=== PATIENT | female | born 1970 | race Caucasian/White ===

== ENCOUNTER 2021-12-25 13:15 | Inpatient (IN) | payer MEDICARE, MEDICAID, SELFPAY ==
[2021-12-25] VITALS (14 sets, daily range): BP systolic 110–146; BP diastolic 55–85; PULSE 62–140; RESP 13–23; TEMP 36.6–36.8; O2SAT 94–98; BMI 43.9
--- NOTE | 2021-12-25 13:16 | XRR_ITS ---
PROCEDURE INFORMATION: Exam: XR Chest Exam date and time: 12/25/2021 1:32 PM Age: 51 years old Clinical indication: Pain; Angina pectoris; Prior surgery; Surgery type: Loop recorder; Additional info: Chest pain TECHNIQUE: Imaging protocol: Radiologic exam of the chest. Views: 1 view. COMPARISON: No relevant prior studies available. FINDINGS: Tubes, catheters and devices: Metallic electronic device overlies the left side of the heart. Lungs: Unremarkable. No consolidation. Pleural spaces: Unremarkable. No pleural effusion. No pneumothorax. Heart/Mediastinum: Cardiomegaly. Bones/joints: Unremarkable. XR/XR chest 1V portable [id number] IMPRESSION: No acute findings.
--- NOTE | 2021-12-25 13:16 | ECG_ITS ---
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 Measurements Intervals [place] Rate: 75 P: 62 CT: 151 QRS: 62 QRSD: 97 T: 53 QT: 405 QTc: 452 Interpretive Statements SINUS RHYTHM WITH OCCASIONAL VENTRICULAR PREMATURE COMPLEXES WITH OCCASIONAL SUPRAVENTRICULAR PREMATURE COMPLEXES MODERATE ST DEPRESSION [0.05+ mV ST DEPRESSION] No previous ECG available for comparison Electronically Signed On 12-25-2021 18:56:32 CDT by Troy Anderson M.D. [id number]
--- NOTE | 2021-12-25 13:31 | ED_ITS ---
HPI - General Adult General: Chief complaint: Chest Pain Stated complaint: CHEST PAIN Time Seen by Provider: 12/25/21 13:16 History of Present Illness: CC: Chest Pain HPI: This is a [51]yo patient hx of DM, HTN, smoking presenting to the ED complaining of acute sudden onset of pounding chest pain. This happened around 12:00 shortly after patient was standing outside on the porch. Patient says the symptoms lasted for 6 minutes. Patient is followed by a milk handler and has a loop recorder. Patient recorded her symptoms of palpitation lightheadedness and shortness of breath along with chest pain during this time.. No associated with shortness of breath, chest pain or dyspnea on exertion. Pain is not tearing in nature and does not radiate to the back. Pain not associated with vomiting or PO intake. Denies any recent sympathomimetic drug use. Patient denies any cough. Denies palpitations, dysphagia, diaphoresis, radiation of pain to bilateral arms, jaw. Denies F/N/V/D. Patient denies any recent immobility, surgery, unilateral leg swelling, or prior PE. Patient denies any orthopnea. Onset: 1 hr ago Duration: 6 minutes Location: home Severity: moderate Associated symptoms: Reports chest pain, dyspnea and palpitations; Deny nausea, rash or vomiting Review of Systems Const: Denies: fever(s) or chills Eyes: Denies: change in vision ENMT: Denies: mouth pain Card: Reports: chest pain and palpitations Resp: Reports: dyspnea; Denies: non-productive cough GI: Denies: abdominal pain, nausea, vomiting or diarrhea : Denies: dysuria Musc: Denies: extremity pain Skin/Breast: Denies: rash or new lesions Neuro: Denies: weakness in extremities Psych: Reports: other (Normal mood) Zeke/Lymph: Denies: easy bruising PFSH ED PFSH: Medical History (Updated 12/27/21 @ 13:31 by Yaya Stewart MD) Chronic pain disorder Diabetes type 2, controlled Dyslipidemia due to type 2 diabetes mellitus Fall Hypertension Morbid obesity with BMI of 40.0-44.9, adult Obstructive sleep apnea Restless leg syndrome Urinary incontinence Social History Smoking and tobacco status: current every day smoker Alcohol intake: never Substance/Drug Use: never Physical Exam Const: COMMON NORMALS: alert HENMT: COMMON NORMALS: atraumatic HEAD & SCALP: atraumatic MOUTH: moist mucous membranes not abnormal Eye: COMMON NORMALS: EOMs intact bilaterally and conjunctivae normal CONJUNCTIVA: Yes conjunctivae normal Neck/C-Spine: COMMON NORMALS: full ROM and supple Resp: COMMON NORMALS: normal respiratory effort and clear to auscultation bilaterally AUSCULTATION: clear to auscultation bilaterally Cardio: OTHER: 2+ radial pulses b/l +irregular irregular rhythm GI: COMMON NORMALS: Soft to palpation and non-tender PALPATION: Yes Soft to palpation OTHER: No focal TTP. NO guarding rebound, guarding, rigidity. No CVA tenderness to percussion. Neg Nelson/Neg McBurney's point tenderness, no suprabupic tenderness to palpation. Extremity: COMMON NORMALS: full ROM OTHER: +no shavonne signs b/l Neuro: SENSORIUM/ORIENTATION: Yes alert MOTOR EXAM: No Abnormal motor strength present and Other motor observations present (no focal motor deficits) Psych: COMMON NORMALS: speech normal SPEECH: Yes normal speech MOOD & AFFECT: Yes euthymic mood Course Vital Signs: Vital signs: Vital Signs Temperature 98.1 F 12/30/21 08:00 Pulse Rate 87 12/30/21 08:09 Respiratory Rate 16 12/30/21 08:09 Blood Pressure 121/76 12/30/21 08:00 Pulse Oximetry 99 12/30/21 08:09 Oxygen Delivery Me thod 12/30/21 08:09 Oxygen Flow Rate 1.5 12/27/21 20:09 Fraction of Inspir ed Oxygen 21 12/30/21 08:09 MDM - General Adult Medical Decision Making [51]yo patient w/ hx of DM, HTN, smoking presenting to the ED with evaluation of new onset of chest pain. HDS, pulse 2+ radially bilaterally, no signs of fluid overload, AAOx3, neuro exam intact. Patient received ASA en route. Patient is noted to be in atrial fibrillation on the monitor. Patient occasionally has PVCs. Workup: ECG x 2, CXR, CBC, BMP, Troponin x 2 Interventions: Findings: ECG: No overt evidence of STEMI, hyperacute T waves, localizable STD or T wave inversions. No evidence of Brugada?s sign, delta wave, epsilon wave, significantly prolonged QTc, or malignant arrhythmia. No Q waves. Other Labs unremarkable for emergent problems. CXR: Without PTX, PNA, or widened mediastinum [3:56pm] On reassessment, the patient is HDS, no complaints of persistent chest pain in the ED after evaluation. ECG is non-ischemic. Discussed, patient was noted to have 2 runs of narrow complex irregular tachycardia with associated light-headedness. I discussed case with Dr. Johnson who will follow this case. Disposition: admission Lab Data : 12/28/21 05:04 12/30/21 03:50 Radiology Impressions Chest X-Ray 12/25/21 13:16 IMPRESSION: No acute findings. Laboratory Results WBC 8.9 10^3/uL (4.0-10.0) 12/26/21 02:50 RBC 4.45 10^6/uL (4.1-5.3) 12/26/21 02:50 Hgb 12.9 g/dL (11.5-15.3) 12/26/21 02:50 Hct 40.7 % (37.0-47.0) 12/26/21 02:50 MCV 91.5 fl (81-99) 12/26/21 02:50 MCH 29.0 pg (28.0-34.0) 12/26/21 02:50 MCHC 31.7 g/dL (30.0-36.0) 12/26/21 02:50 RDW 16.1 % (12.1-15.1) H 12/26/21 02:50 Plt Count 194 10^3/cmm (130-400) 12/26/21 02:50 MPV 11.5 fL (7.4-10.4) H 12/26/21 02:50 Neut % (Auto) 44.7 % 12/26/21 02:50 Lymph % (Auto) 42.0 % 12/26/21 02:50 Sebastian % (Auto) 8.8 % 12/26/21 02:50 Eos % (Auto) 3.5 % 12/26/21 02:50 Baso % (Auto) 0.3 % 12/26/21 02:50 Neut # (Auto) 3.98 10^3/uL (1.8-7.7) 12/26/21 02:50 Lymph # (Auto) 3.7 10^3/uL (0.8-4.8) 12/26/21 02:50 Sebastian # (Auto) 0.8 10^3/uL (0.2-0.9) 12/26/21 02:50 Eos # (Auto) 0.3 10^3/uL (0.0-0.8) 12/26/21 02:50 Baso # (Auto) 0.0 10^3/uL (0.0-0.1) 12/26/21 02:50 Nucleated RBC % (auto) 0 % 12/26/21 02:50 Nucleated RBCs # 0.0 /100WBC 12/26/21 02:50 Sodium 141 mmol/L (136-145) 12/26/21 02:50 Potassium 3.4 mmol/L (3.5-5.1) L 12/26/21 02:50 Chloride 100 mmol/L (98-107) 12/26/21 02:50 Carbon Dioxide 28 mmol/L (22-29) 12/26/21 02:50 Anion Gap 16.4 (5-19) 12/26/21 02:50 BUN 16 mg/dL (6-20) 12/26/21 02:50 Creatinine 0.7 mg/dL (0.5-0.9) 12/26/21 02:50 GFR Calculation 87.5 mL/min (90-130) L 12/26/21 02:50 Glucose 154 mg/dL (65-115) H 12/26/21 02:50 POC Glucose 195 mg/dL (70-110) H 12/26/21 11:45 Estimat Average Glucose 252 12/26/21 02:50 Hemoglobin A1c 10.4 % (4.0-6.0) H 12/26/21 02:50 Calculated Osmolality 296 mOsm/kg (285-295) H 12/26/21 02:50 Calcium 9.5 mg/dL (8.5-10.5) 12/26/21 02:50 Phosphorus 4.9 mg/dL (2.5-4.5) H 12/26/21 02:50 Magnesium 1.9 mg/dL (1.7-2.3) 12/26/21 02:50 Iron 68 ug/dL (37-145) 12/25/21 15:15 TIBC 356 mcg/dl 12/25/21 15:15 % Saturation 19.1 % (20-50) L 12/25/21 15:15 Unsat Iron Binding 288 ug/dL (112-347) 12/25/21 15:15 Total Bilirubin 0.2 mg/dL (0.15-1.2) 12/26/21 02:50 AST 18 U/L (0-32) 12/26/21 02:50 ALT 15 U/L (0-33) 12/26/21 02:50 Alkaline Phosphatase 121 IU/L (35-105) H 12/26/21 02:50 Troponin T Baseline 9 ng/L (0-10) 12/25/21 13:25 Troponin T 120 Minute 9.21 ng/L (0-10) 12/25/21 15:15 Delta Troponin T 0.21 ABS# (0-10) 12/25/21 15:15 Troponin T Hi Sens 6Hr 11.31 ng/L (0-10) H 12/25/21 21:27 Troponin T Hi Sens 6Hr Delta 2.31 ng/L (0-12) 12/25/21 21:27 NT-Pro-B Natriuret Pep 76 pg/mL (0-125) 12/25/21 15:15 Total Protein 6.6 g/dL (6.6-8.7) 12/26/21 02:50 Albumin 3.5 g/dL (3.5-5.2) 12/26/21 02:50 Globulin 3.1 g/dL (1.3-4.6) 12/26/21 02:50 Triglycerides 221 mg/dL (0-150) H 12/26/21 02:50 Cholesterol 137 mg/dL (0-200) 12/26/21 02:50 LDL Cholesterol, Calc 65 mg/dL (50-129) 12/26/21 02:50 Total VLDL Cholesterol 44 mg/dL (0-30) H 12/26/21 02:50 HDL Cholesterol 28 mg/dL (60-100) L 12/26/21 02:50 Cholesterol/HDL Ratio 4.89 mg/dL (0.0-4.40) H 12/26/21 02:50 Vitamin B12 669 pg/mL (232-1245) 12/25/21 15:15 Folate > 20.0 ng/mL (4.8-37.3) 12/25/21 15:15 TSH 1.82 uIU/mL (0.27-4.20) 12/25/21 13:25 Free T4 1.05 ng/dL (0.82-1.77) 12/25/21 13:25 Urine Color Yellow (Yellow) 12/25/21 17:30 Urine Appearance Clear (CLEAR) 12/25/21 17:30 Urine pH 5 (5-7) 12/25/21 17:30 Ur Specific [place] 1.005 (1.005-1.030) 12/25/21 17:30 Urine Protein Neg (Negative) 12/25/21 17:30 Urine Glucose (UA) 4+ (Normal) H 12/25/21 17:30 Urine Ketones Negative (Negative) 12/25/21 17:30 Urine Blood Neg (Negative) 12/25/21 17:30 Urine Nitrate Negative (Negative) 12/25/21 17:30 Urine Bilirubin Neg (Negative) 12/25/21 17:30 Urine Urobilinogen Norm mg/dL (Negative) 12/25/21 17:30 Ur Leukocyte Esterase Negative (Negative) 12/25/21 17:30 Urine Opiates Screen Negative ng/mL (Negative) 12/25/21 17:30 Ur Barbiturates Screen Negative ng/mL (Negative) 12/25/21 17:30 Ur Phencyclidine Scrn Negative ng/mL (Negative) 12/25/21 17:30 Ur Amphetamines Screen Negative ng/mL (Negative) 12/25/21 17:30 U Benzodiazepines Scrn Negative ng/mL (Negative) 12/25/21 17:30 Urine Cocaine Screen Negative ng/mL (Negative) 12/25/21 17:30 U Marijuana (THC) Screen Negative ng/mL (Negative) 12/25/21 17:30 Imaging Data Other Imaging: Radiologist's impression: [address] [place] [address] XRay Report Signed Patient: Halina Escamilla Unit #: [id number] : 1970 Age/Sex: 51 / F ADM Date: 12/25/21 Loc: ER Room/Bed: Attending Dr: Ordering Provider/Ordering MD: Kesha Saenz MD Date of Service: 12/25/21 Procedure(s): XR chest 1V portable [id number] Accession Number(s): [id number] Report Number: [id number] PROCEDURE INFORMATION: Exam: XR Chest Exam date and time: 12/25/2021 1:32 PM Age: 51 years old Clinical indication: Pain; Angina pectoris; Prior surgery; Surgery type: Loop recorder; Additional info: Chest pain TECHNIQUE: Imaging protocol: Radiologic exam of the chest. Views: 1 view. COMPARISON: No relevant prior studies available. FINDINGS: Tubes, catheters and devices: Metallic electronic device overlies the left side of the heart. Lungs: Unremarkable. No consolidation. Pleural spaces: Unremarkable. No pleural effusion. No pneumothorax. Heart/Mediastinum: Cardiomegaly. Bones/joints: Unremarkable. XR/XR chest 1V portable [id number] IMPRESSION: No acute findings. ? Dictated By: Andrea Parks MD Signed By: Andrea Parks MD Signed Date/Time: 12/25/21 1525 DD/ 1332 Discharge Plan Discharge Patient Disposition: Home Clinical Impression: Chest pain, Dyspnea, Palpitations, Light headedness Condition: Stable Discharge Orders: Discharge Order (Routine); Ordered 12/30/21 Ordered By: Yaya Stewart Discharge Diet: Regular, Cardiac and Diabetic Discharge Activity: Resume usual activity and Increase activity as tolerated Coding Level of Care Code ED Parachute/Combatant Diver Officer for Chg Fwd Exam Comprehensive
[2021-12-25 13:49] LABS: Basophils % 0.5 %; Eosinophils # 0.2 10^3/uL (0.0-0.8); Eosinophils % 2.8 %; Hematocrit 43.1 % (37.0-47.0); Hemoglobin 14.1 g/dL (11.5-15.3); Lymphocytes # 3.1 10^3/uL (0.8-4.8); Lymphocytes % 35.6 %; Mean Corpuscular HGB Conc 32.7 g/dL (30.0-36.0); Mean Corpuscular Hemoglobin 29.4 pg (28.0-34.0); Mean Corpuscular Volume 89.8 fl (81-99); Monocytes # 0.6 10^3/uL (0.2-0.9); Monocytes % 6.8 %; Neutrophils # 4.69 10^3/uL (1.8-7.7); Neutrophils % 53.8 %; Nucleated Red Blood Cells % 0 %; Platelet Count 236 10^3/cmm (130-400); Red Cell Distribution Width 16.2 % (12.1-15.1); White Blood Count 8.7 10^3/uL (4.0-10.0)
[2021-12-25 14:13] LABS: Troponin(5th) Baseline 9 ng/L (0-10)
[2021-12-25 14:20] LABS: Blood Urea Nitrogen 14 mg/dL (6-20); Calcium 9.6 mg/dL (8.5-10.5); Carbon Dioxide 26 mmol/L (22-29); Chloride 97 mmol/L (98-107); Free T4 Free Thyroxine 1.05 ng/dL (0.82-1.77); Glomerular Filtration Rate 87.5 mL/min (90-130); Glucose 277 mg/dL (65-115); Magnesium 1.7 mg/dL (1.7-2.3); Osmolality Calculated 298 mOsm/kg (285-295); Sodium 139 mmol/L (136-145); Thyroid Stimulating Hormone 1.82 uIU/mL (0.27-4.20)
[2021-12-25 14:21] LABS: Anion Gap 19.9 (5-19); Potassium 3.9 mmol/L (3.5-5.1)
--- NOTE | 2021-12-25 15:13 | ECG_ITS ---
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 Measurements Intervals [place] Rate: 65 P: [place]: QRS: 67 QRSD: 98 T: 65 QT: 423 QTc: 441 Interpretive Statements Sinus rhythm with premature atrial complexes Compared to ECG 12/25/2021 13:29:11 Aberrant conduction of supraventricular beat(s) now present ST (T wave) deviation still present Electronically Signed On 12-25-2021 19:00:46 CDT by Troy Anderson M.D. [id number]
[2021-12-25 15:51] LABS: Troponin 5 2HR 9.21 ng/L (0-10)
[2021-12-25 16:55] LABS: Troponin 5 2HR Delta 0.21 ABS# (0-10)
--- NOTE | 2021-12-25 17:04 | P.HP_ITS ---
Providers/Chief Complaint Chief Complaint: CHEST PAIN History of Present Illness Halina Escamilla is a 51 year old female with past medical history of type 2 diabetes mellitus, hypertension, paroxysmal A. fib, loop recorder placed in September [address] Pulido at [place], [place], anxiety presented to the ER because of frequent episodes of palpitations since today morning. Patient states since placement of loop recorder she has had few episodes of palpitation but since today morning episodes have been more frequent and more persistent. Usually the episodes will last for a minute but today they have been lasting for over 10 minutes. During the episodes she complains of mild shortness of breath. Denies dizziness or chest pressure or loss of consciousness. She denies any changes in the medications but did say that she missed her sotalol today morning as she ran out of the medication. Review of Systems General: Reports: 10 or more systems reviewed and unremarkable except in HPI and below Const: Denies: fever(s), chills, body aches, change in appetite, change in weight, malaise, night sweats, diaphoresis, change in sleep pattern, daytime sleepiness or snoring Eyes: Denies: change in vision, blurry vision, photophobia, eye discomfort or eye discharge ENMT: Denies: throat pain, enlarged tonsils, hoarseness, mouth pain, oral sores, dry mouth, tinnitus, nasal congestion or post nasal drip Card: Denies: chest pain, palpitations, irregular heart rhythm, edema, swelling of feet/ankles, lightheadedness, syncope, pre-syncope, dyspnea on exertion, orthopnea, leg pain with exertion or acrocyanosis Resp: Denies: dyspnea, productive cough, non-productive cough, wheezing, stridor, pain on inspiration, change in phlegm color, hemoptysis or chest conge stion GI: Denies: abdominal pain, nausea, vomiting, hematemesis, coffee ground emesis, dysphagia, heartburn, diarrhea, constipation, bloating, GI cramping, change in bowel habits, pain on defecation, hematochezia or melena : Denies: flank pain, dysuria, urinary frequency, urinary urgency, urinary hesitancy, nocturia or hematuria Musc: Denies: neck pain, back pain, extremity pain, joint pain, joint swellin g, joint redness, joint stiffness or limited range of motion Neuro: Denies: headache(s), numbness in extremities, weakness in extremities, sensory changes, lack of coordination, difficulty walking, frequent falls, dizziness, vertigo, confusion, Slurred speech present, difficulty communicating thoughts or seizure-like activity Psych: Denies: anxiety, depression, mood swings, panic attacks, hopelessness or irritability Endo: Denies: polyuria, polydipsia, tired all the time, cold intolerance, excessive sweating, flushing or heat intolerance Zeke/Lymph: Denies: easy bruising or easy bleeding All/Imm: Denies: tongue swelling, facial swelling or acute wheezing Medications/Allergies Home Medications Medication Instructions Recorded Confirmed Last Taken Type aspirin 325 mg tablet 325 mg PO DAILY 12/07/21 12/25/21 12/25/21 History atorvastatin 40 mg tablet 40 mg PO DAILY 12/07/21 12/25/21 12/25/21 History baclofen 10 mg tablet 10 mg PO TID PRN muscle pain #30 12/07/21 12/25/21 Unknown Rx tabs dapagliflozin 10 mg tablet 10 mg PO DAILY 12/07/21 12/25/21 12/25/21 History (Farxiga) diltiazem HCl 180 mg 180 mg PO QPM 12/07/21 12/25/21 12/24/21 History tablet,extended release 24 hr finerenone 10 mg tablet (Kerendia) 10 mg PO DAILY 12/07/21 12/25/21 12/25/21 History furosemide 20 mg tablet 20 mg PO DAILY 12/07/21 12/25/21 12/25/21 History gabapentin 400 mg tablet 1,200 mg PO QPM 12/07/21 12/25/21 12/24/21 History gabapentin 800 mg tablet 800 mg PO QAM 12/07/21 12/25/21 12/25/21 History insulin glargine 100 unit/mL (3 72 unit SUBCUT QPM 12/07/21 12/25/21 12/24/21 History mL) subcutaneous pen (Lantus Solostar U-100 Insulin) lisinopril 20 1 tab PO DAILY 12/07/21 12/25/21 12/25/21 History mg-hydrochlorothiazide 25 mg tablet oxybutynin chloride 5 mg tablet 5 mg PO BID 12/07/21 12/25/21 12/25/21 History potassium chloride 10 mEq 10 meq PO DAILY 12/07/21 12/25/21 12/25/21 History tablet,extended release ropinirole 2 mg tablet 2 mg PO BEDTIME 12/07/21 12/25/21 12/24/21 History sertraline 100 mg tablet 100 mg PO DAILY 12/07/21 12/25/21 12/25/21 History sitagliptin 50 mg-metformin ER 1 tab PO BID 12/07/21 12/25/21 12/25/21 History 1,000 mg tablet,extended release 24h mp (Janumet XR) sotalol 160 mg tablet 160 mg PO BID 12/07/21 12/25/21 12/25/21 History thiamine HCl (vitamin B1) 500 mg 500 mg PO DAILY 12/07/21 12/25/21 12/24/21 History tablet vitamin B complex (B 1 tab PO DAILY 12/07/21 12/25/21 12/25/21 History Complex-Vitamin B12) fluticasone propionate 50 2 spray intranasal DAILY PRN Nasal 12/25/21 12/25/21 Unknown History mcg/actuation nasal Congestion spray,suspension Allergies Allergy/AdvReac Type Severity Reaction Status Date / Time clindamycin AdvReac Mild ADR-Diarrhe Verified 12/07/21 08:59 a cyclobenzaprine AdvReac Mild ADR-Confusi Verified 12/07/21 08:59 [From Flexeril] on PFSH Acute PFSH: Medical History (Updated 12/25/21 @ 17:07 by Yaya Stewart MD) Chronic pain disorder Diabetes type 2, controlled Dyslipidemia due to type 2 diabetes mellitus Fall Hypertension Morbid obesity with BMI of 40.0-44.9, adult Restless leg syndrome Urinary incontinence Social History Smoking and tobacco status: current every day smoker Alcohol intake: never Substance/Drug Use: never Vitals/I&O/Wt Last Vital Signs Temp 97.9 F 12/25/21 13:16 Pulse 128 H 12/25/21 16:30 Resp 20 H 12/25/21 16:30 BP 143/85 12/25/21 16:30 Pulse Ox 96 12/25/21 16:30 O2 Del Method 12/25/21 13:16 Weight last 48 hrs Weight 127.459 kg Physical Exam Narrative: EXAM NARRATIVE: General: No acute distress, anxious HEENT: PERRLA, pupils bilaterally equal and reactive Chest: Bilateral normal vesicular breath sounds, equal good air entry bilaterally CVS: S1-S2 regular with episodes of missed beats, no murmurs, no tachycardia, no gallops, no rubs Abdomen: Soft, nontender, no organomegaly, bowel sounds present, morbidly obese Neuro: No focal deficits, no facial deformity, AO x3, power 5/5 in all limbs Data : 12/25/21 13:25 12/25/21 13:25 A&P Assessment and plan (1) Paroxysmal A-fib: Check TSH, echocardiogram, urinalysis, urine drug screen. Restart home dose of sotalol. Monitor QTC. Continue with home dose of Cardizem. Cardiology has been consulted from the ER. Not on anticoagulation because of low Francisco Vas score. We will wait for echocardiogram before making any further recommendations. Continue with aspirin 325 mg daily for now. Telemetry. Will talk to patient's outpatient deputy county clerk and try to get loop recorder results. Status: Acute (2) Dyspnea: Check proBNP. Checks x-ray. IV Lasix 40 mg once. Status: Acute (3) Palpitations: Status: Acute (4) Diabetes type 2, controlled: Check A1c. Continue with home dose of Lantus 72 units nightly. Insulin sliding scale at moderate dose protocol before meals and at bedtime Status: Acute (5) Hypertension: Goal blood pressure less than 140/90 mmHg. Continue with home dose of Cardizem, sotalol, lisinopril and hydrochlorothiazide. Uptitrate accordingly. Status: Acute (6) Morbid obesity with BMI of 40.0-44.9, adult: Cannot rule out underlying sleep apnea. Will advise patient for sleep study as an outpatient with primary care provider once social discord is more stable. Status: Acute Plan Check folate, lipid panel, vitamin B12, iron panel, urinalysis, A1c. Full code. Lovenox for DVT prophylaxis Famotidine for PUD prophylaxis Cardiac carb consistent diet. Admit to CSU. Attestations Medical Necessity Statement*: Admission under observation for less than 2 midnights for paroxysmal atrial fibrillation Time Spent in Patient Care: Greater than 35 minutes Coding Level of Care Code Acute Feather Renovator for Chg Fwd Diagnoses Paroxysmal A-fib I48.0 Dyspnea R06.00 Palpitations R00.2 Diabetes type 2, controlled E11.9 Hypertension I10 Morbid obesity with BMI of 40.0-44.9, adult E66.01; Z68.41
[2021-12-25] MEDS: sotalol 80 mg Tablet 160 MG PO (17:14)
[2021-12-25] MEDS: FUROsemide 10 mg/mL SDV 4mL 40 MG IVP (17:14)
--- NOTE | 2021-12-25 17:16 | ECG_ITS ---
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 Measurements Intervals [place] Rate: 145 P: [place]: QRS: 44 QRSD: 112 T: 180 QT: 229 QTc: 356 Interpretive Statements ATRIAL FLUTTER/TACHYCARDIA WITH RAPID VENTRICULAR RESPONSE MODERATE INTRAVENTRICULAR CONDUCTION DELAY [110+ ms QRS DURATION] Compared to ECG 12/25/2021 15:13:36 Intraventricular conduction delay now present Atrial fibrillation no longer present Ventricular premature complex(es) no longer present Aberrant conduction of supraventricular beat(s) no longer present ST (T wave) deviation still present Electronically Signed On 12-25-2021 18:55:09 CDT by Troy Anderson M.D. [id number]
--- NOTE | 2021-12-25 17:37 | USCV_ITS ---
Halina Escamilla Age: 51 Gender: F : 1970 Exam Date: 12/25/2021 20:01 Ordering Phys: Yaya Stewart MD Technologist: VISHNU Exam Location: [facility] [place] Indication: paroxysmal afib. No history of cardiac intervention per patient. BP: 146 / 84 HR: 85 Rhythm: Sinus Technical Quality: Adequate with [employer] MEASUREMENTS (Male / Female) Normal Values 2D ECHO LV Diastolic Diameter PLAX 4.4 cm 4.2 - 5.9 / 3.9 - 5.3 cm LV Systolic Diameter PLAX 2.7 cm IVS Diastolic Thickness 1.4 cm 0.6 - 1.0 / 0.6 - 0.9 cm IVS Systolic Thickness 2.0 cm LVPW Diastolic Thickness 1.3 cm 0.6 - 1.0 / 0.6 - 0.9 cm LVPW Systolic Thickness 2.1 cm LVOT Diameter 1.9 cm LV Ejection Fraction 2D Teich 68.2 % LV Ejection Fraction MOD 2C 47.0 % LV Ejection Fraction 2C AL 46.7 % LA Diameter 4.1 cm LA Width 4.1 cm LA Height 5.8 cm RA Width 4.8 cm RA Height 5.4 cm Aorta at Sinotubular Diameter 2.6 cm IVC Diameter 1.4 cm M-MODE Aortic Annulus Diameter 2.9 cm LA Ao Ratio MM 1.5 MV E Point Septal Separation 0.3 cm DOPPLER AV Peak Velocity 159.0 cm/s LVOT Peak Velocity 96.0 cm/s AV Area Cont Eq vti 1.5 cm squared AV Area Cont Eq pk 1.8 cm squared MV Area PHT 2.3 cm squared Mitral E to A Ratio 1.1 MV E' Velocity 72.5 cm/s Mitral E to MV E' Ratio 12.9 Mitral E to LV E' Lateral Ratio 12.1 Mitral E to LV E' Septal Ratio 13.8 TR Peak Velocity 241.0 cm/s TR Peak Gradient 23.2 mmHg TV Peak E Velocity 44.0 cm/s Right Atrial Pressure 5.0 mmHg Pulmonary Artery Systolic Pressu 28.2 mmHg PV Peak Velocity 106.0 cm/s RV Acceleration Time 0.2 s RV Ejection Time 0.5 s RV AcT/ET 0.3 FINDINGS Left Ventricle Normal left ventricular size, systolic function and wall thickness, with no regional wall motion abnormalities. Left ventricular ejection fraction is estimated at 60-65 %. Normal diastolic function. Right Ventricle Normal right ventricular size and systolic function. Right ventricular systolic pressure 28.2 mmHg. Right Atrium Normal right atrial size. Left Atrium Normal left atrial size. Mitral Valve Structurally normal mitral valve. No mitral valve stenosis. No mitral valve regurgitation. Aortic Valve Structurally normal trileaflet aortic valve. No aortic valve stenosis. No aortic valve regurgitation. Tricuspid Valve Structurally normal tricuspid valve. No tricuspid valve stenosis. Trace tricuspid valve regurgitation. Pulmonic Valve Pulmonic valve not well visualized. No pulmonary valve stenosis. Trace pulmonary valve regurgitation. Pericardium No pericardial effusion. Aorta Normal size aortic root and proximal ascending aorta. IVC Normal IVC dimension with >50% respiratory change of the inferior vena cava. CONCLUSIONS 1. Normal left ventricular size, systolic function and wall thickness, with no regional wall motion abnormalities. Left ventricular ejection fraction is estimated at 60-65 %. Normal diastolic function. 2. No significant valvular abnormality. 3. Normal pulmonary artery pressure. 4. No prior similar studies to compare. Rafaela Johnson MD (Electronically Signed) Final Date: 26 December 2021 21:41 S
--- NOTE | 2021-12-25 17:48 | PM.CONSULT ---
Providers/Reason For Consult Consulting Physician/Specialty*: Dr. Johnson, Cardiology Reason for Consult*: Atrial flutter with RVR Attending Physician: Yaya Stewart MD History of Present Illness History of Present Illness Halina Escamilla is a 51 year old female with PMHx of paroxysmal atrial fibrillation since 06/2021 on sotalol with dose increase to 160 mg PO BID in 09/2021, dilatiazem and ASA, ILR implantation for A. fib monitoring in 09/2021, no prior cardioversion or other antiarrhythmic use. She had a prior LHC that did not show ant obstructive disease per patient. She also has HTN, type 2 DM, morbid obesity and YU on BiPaP and nocturnal oxygen supplementation. She presented for palpitations and fast HR noted on her apple watch. She was initially in sinus bradycardia with PAC's and PVC's with short paroxysms of atrial flutter on telemetry but later on went into atrial flutter with RVR with 2:1 conduction. Apparently, she missed her morning sotalol dose and has recently moved to the area in 11/2021. Trops x 2 negative. She complains of heart racing at the time of evaluation. Review of Systems General: Reports: 10 or more systems reviewed and unremarkable except in HPI and below Const: Denies: fever(s), chills, body aches, change in appetite, change in weight, malaise, night sweats, diaphoresis, change in sleep pattern, daytime sleepiness or snoring Eyes: Denies: change in vision, blurry vision, photophobia, eye discomfort or eye discharge ENMT: Denies: throat pain, enlarged tonsils, hoarseness, mouth pain, oral sores, dry mouth, tinnitus, nasal congestion or post nasal drip Card: Reports: chest pain, palpitations and irregular heart rhythm; Denies: edema, swelling of feet/ankles, lightheadedness, syncope, pre-syncope, dyspnea on exertion, orthopnea, leg pain with exertion or acrocyanosis Resp: Denies: dyspnea, productive cough, non-productive cough, wheezing, stridor, pain on inspiration, change in phlegm color, hemoptysis or chest congestion GI: Denies: abdominal pain, nausea, vomiting, hematemesis, coffee ground emesis, dysphagia, heartburn, diarrhea, constipation, bloating, GI cramping, change in bowel habits, pain on defecation, hematochezia or melena : Denies: flank pain, dysuria, urinary frequency, urinary urgency, urinary hesitancy, nocturia or hematuria Musc: Denies: neck pain, back pain, extremity pain, joint pain, joint swelling, joint redness, joint stiffness or limited range of motion Neuro: Denies: headache(s), numbness in extremities, weakness in extremities, sensory changes, lack of coordination, difficulty walking, frequent falls, dizziness, vertigo, confusion, Slurred speech present, difficulty communicating thoughts or seizure-like activity Psych: Denies: anxiety, depression, mood swings, panic attacks, hopelessness or irritability Endo: Denies: polyuria, polydipsia, tired all the time, cold intolerance, excessive sweating, flushing or heat intolerance Zeke/Lymph: Denies: easy bruising or easy bleeding All/Imm: Denies: tongue swelling, facial swelling or acute wheezing Medications/Allergies Home Medications Medication Instructions Recorded Confirmed Last Taken Type aspirin 325 mg tablet 325 mg PO DAILY 12/07/21 12/25/21 12/25/21 History atorvastatin 40 mg tablet 40 mg PO DAILY 12/07/21 12/25/21 12/25/21 History baclofen 10 mg tablet 10 mg PO TID PRN muscle pain #30 12/07/21 12/25/21 Unknown Rx tabs dapagliflozin 10 mg tablet 10 mg PO DAILY 12/07/21 12/25/21 12/25/21 History ([facility]) diltiazem HCl 180 mg 180 mg PO QPM 12/07/21 12/25/21 12/24/21 History tablet,extended release 24 hr finerenone 10 mg tablet (Kerendia) 10 mg PO DAILY 12/07/21 12/25/21 12/25/21 History furosemide 20 mg tablet 20 mg PO DAILY 12/07/21 12/25/21 12/25/21 History gabapentin 400 mg tablet 1,200 mg PO QPM 12/07/21 12/25/21 12/24/21 History gabapentin 800 mg tablet 800 mg PO QAM 12/07/21 12/25/21 12/25/21 History insulin glargine 100 unit/mL (3 72 unit SUBCUT QPM 12/07/21 12/25/21 12/24/21 History mL) subcutaneous pen (Lantus Solostar U-100 Insulin) lisinopril 20 1 tab PO DAILY 12/07/21 12/25/21 12/25/21 History mg-hydrochlorothiazide 25 mg tablet oxybutynin chloride 5 mg tablet 5 mg PO BID 12/07/21 12/25/21 12/25/21 History potassium chloride 10 mEq 10 meq PO DAILY 12/07/21 12/25/21 12/25/21 History tablet,extended release ropinirole 2 mg tablet 2 mg PO BEDTIME 12/07/21 12/25/21 12/24/21 History sertraline 100 mg tablet 100 mg PO DAILY 12/07/21 12/25/21 12/25/21 History sitagliptin 50 mg-metformin ER 1 tab PO BID 12/07/21 12/25/21 12/25/21 History 1,000 mg tablet,extended release 24h mp (Janumet XR) sotalol 160 mg tablet 160 mg PO BID 12/07/21 12/25/21 12/25/21 History thiamine HCl (vitamin B1) 500 mg 500 mg PO DAILY 12/07/21 12/25/21 12/24/21 History tablet vitamin B complex (B 1 tab PO DAILY 12/07/21 12/25/21 12/25/21 History Complex-Vitamin B12) fluticasone propionate 50 2 spray intranasal DAILY PRN Nasal 12/25/21 12/25/21 Unknown History mcg/actuation nasal Congestion spray,suspension Allergies Allergy/AdvReac Type Severity Reaction Status Date / Time clindamycin AdvReac Mild ADR-Diarrhe Verified 12/07/21 08:59 a cyclobenzaprine AdvReac Mild ADR-Confusi Verified 12/07/21 08:59 [From Flexeril] on PFSH Acute PFSH: Medical History Chronic pain disorder Diabetes type 2, controlled Dyslipidemia due to type 2 diabetes mellitus Fall Hypertension Morbid obesity with BMI of 40.0-44.9, adult Restless leg syndrome Urinary incontinence Social History Smoking and tobacco status: current every day smoker Alcohol intake: never Substance/Drug Use: never Vitals/I&O/Wt Last Vital Signs Temp 97.9 F 12/25/21 13:16 Pulse 85 12/25/21 17:00 Resp 23 H 12/25/21 17:00 BP 146/84 12/25/21 17:00 Pulse Ox 96 12/25/21 16:30 O2 Del Method 12/25/21 13:16 Weight last 48 hrs Weight 281 lb Physical Exam Const: COMMON NORMALS: no acute distress, patient oriented x3 and alert GENERAL APPEARANCE: cooperative, comfortable, well kempt, well hydrated and other (morbidly obese) HENMT: COMMON NORMALS: hearing grossly normal bilaterally, external ears normal and moist oral mucous membranes FACE & SINUS: normal facial exam NOSE: No nasal discharge present; no Epistaxis present EXTERNAL EAR: Yes external ears normal MOUTH: lip normal Eye: COMMON NORMALS: EOMs intact bilaterally and no scleral icterus GENERAL EYE: appearance normal, both eyes and all related structures ALIGNMENT: Yes alignment normal Neck/C-Spine: COMMON NORMALS: no lymphadenopathy, supple and no JVD GENERAL: Yes normal visual inspection and Yes trachea midline CAROTIDS: Yes normal carotid upstroke Lymph: LYMPHATIC: no lymphadenopathy noted Chest: COMMONS NORMALS: normal inspection of the chest and normal palpation of entire chest wall CHEST: Yes Symmetrical chest wall rise and No tenderness Resp: COMMON NORMALS: clear to auscultation bilaterally EFFORT & INSPECTION: Yes able to speak in complete sentences, No tachypneic, No respiratory distress, No pursed lip breathing, No labored and No Actively coughing AUSCULTATION: clear to auscultation bilaterally, no crackles, no rales, no rhonchi and no wheezes Cardio: COMMON NORMALS: no JVD, regular rhythm, S1 normal heart sound present, S2 normal heart sound present and Peripheral pulses 2+ throughout PALPATION: normal PMI RHYTHM: regular rhythm HEART SOUNDS: S1 normal heart sound present, S2 normal heart sound present, no click, no gallops and no murmurs BRUITS: no carotid bruits PERIPHERAL PULSES: Peripheral pulses 2+ throughout, radial pulses present, posterior tibial pulses present and dorsalis pedis present OTHER: tachycardia+ GI: COMMON NORMALS: Soft to palpation AUSCULTATION: Yes normoactive bowel sounds PALPATION: Yes Soft to palpation, No Tenderness to palpation present (GI), No Guarding due to palpation present (GI) and No Rigid due to palpation PERCUSSION: tympanic to percussion Extremity: GENERAL: No clubbing, No cyanosis, Yes edema and No pallor Neuro: COMMON NORMALS: patient oriented x3, CN's II-XII intact bilaterally and no focal motor deficits SENSORIUM/ORIENTATION: Yes alert Psych: COMMON NORMALS: Normal thought process present and speech normal APPEARANCE: Yes well kempt SPEECH: Yes normal speech MOOD & AFFECT: Yes euthymic mood THOUGHT PROCESS: Normal thought process present THOUGHT CONTENT: Yes Normal thought content present Data : 12/26/21 02:50 12/26/21 02:50 A&P Assessment and plan (1) Paroxysmal atrial flutter: [id number]= 3/, 1 for HTN, 1 for DM and 1 for female sex -cardizem bolus administered f/u cardizem gtt at 10 mg/hr -continue sotalol 160 mg PO BID -start on therapeutic lovenox -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 -Based on her response, overnight may need to consider JOSHUA/CV +/-another antiarrhythmic. Status: Acute (2) Paroxysmal A-fib: Status: Acute (3) Hypertension: On sotalol, diltiazem and lasix at home Status: Acute (4) Morbid obesity with BMI of 40.0-44.9, adult: Status: Acute (5) Diabetes type 2, controlled: Status: Acute (6) Dyslipidemia due to type 2 diabetes mellitus: Status: Acute Plan YU on BiPaP Chronic pain Thank you for allowing me to participate in patient' scare. Please feel free to call with questions or concerns. Consult Attestations Time Spent in Patient Care: Greater than 35 minutes Coding Level of Care Code Acute Flight Control Tower Operator for [facility] Fwd Exam Comprehensive Diagnoses Paroxysmal atrial flutter I48.92 Paroxysmal A-fib I48.0 Hypertension I10 Morbid obesity with BMI of 40.0-44.9, adult E66.01; Z68.41 Diabetes type 2, controlled E11.9 Dyslipidemia due to type 2 diabetes mellitus E11.69; E78.5
[2021-12-25 18:10] LABS: Add Urine Microscopic? NO; Charge for UA Resulting for Rev
[2021-12-25 18:12] LABS: Bilirubin Urine Neg (Negative); Blood Urine Neg (Negative); Glucose Urine UA 4+ (Normal); Ketones Urine Negative (Negative); Leukocyte Esterase Urine Negative (Negative); Nitrate Urine Negative (Negative); Protein Urine Neg (Negative); Specific Gravity, Urine 1.005 (1.005-1.030); Urine Appearance Clear (CLEAR); Urine Color Yellow (Yellow); Urobilinogen Urine Norm (Negative); pH Urine 5 (5-7)
[2021-12-25] MEDS: dilTIAZem 5 mg/mL SDV 5 mL 10 MG IVP (18:19)
[2021-12-25 18:21] LABS: Amphetamines Screen Urine Negative (Negative); Barbiturates Screen Urine Negative (Negative); Benzodiazepines Screen Urine Negative (Negative); Cocaine Screen Urine Negative (Negative); Opiate Screen Urine Negative (Negative); PCP Screen Urine Negative (Negative); THC Screen Urine Negative (Negative)
[2021-12-25 20:50] LABS: Iron 68 ug/dL (37-145); NT Pro B Type Natriuretic Pept 76 pg/mL (0-125); Vitamin B12 669 pg/mL (232-1245)
[2021-12-25 21:00] LABS: Percent Saturation 19.1 % (20-50); Total Iron Binding Capacity 356 mcg/dl; Unsaturated Iron Binding 288 ug/dL (112-347)
[2021-12-25] MEDS: enoxaparin 120 mg/0.8 mL Syringe SUBCUT (21:16)
[2021-12-25] MEDS: gabapentin 400 mg Capsule 1200 MG PO (21:16)
[2021-12-25] MEDS: famotidine 20 mg/2 mL INJ IVP (21:17)
[2021-12-25] MEDS: ropinirole 2 mg Tablet PO (21:17)
[2021-12-25] MEDS: oxybutynin 5 mg Tablet PO (21:18)
[2021-12-25] MEDS: insulin glargine 100 units/1 mL 72 UNIT SUBCUT (21:31)
[2021-12-25 21:34] LABS: Glucose Point of Care 146 mg/dL (70-110)
[2021-12-25 21:51] LABS: Folate Level > 20.0 ng/mL (4.8-37.3)
[2021-12-25 22:04] LABS: Troponin 5 6HR 11.31 ng/L (0-10); Troponin 5 6HR Delta 2.31 ng/L (0-12)
[2021-12-26] VITALS (10 sets, daily range): BP systolic 101–116; BP diastolic 55–91; PULSE 58–72; RESP 15–22; TEMP 36.1–37; O2SAT 91–98; BMI 4031.4
[2021-12-26 03:03] LABS: Basophils % 0.3 %; Eosinophils # 0.3 10^3/uL (0.0-0.8); Eosinophils % 3.5 %; Hematocrit 40.7 % (37.0-47.0); Hemoglobin 12.9 g/dL (11.5-15.3); Lymphocytes # 3.7 10^3/uL (0.8-4.8); Mean Corpuscular HGB Conc 31.7 g/dL (30.0-36.0); Mean Corpuscular Volume 91.5 fl (81-99); Mean Platelet Volume 11.5 fL (7.4-10.4); Monocytes # 0.8 10^3/uL (0.2-0.9); Monocytes % 8.8 %; Neutrophils # 3.98 10^3/uL (1.8-7.7); Neutrophils % 44.7 %; Nucleated Red Blood Cells % 0 %; Platelet Count 194 10^3/cmm (130-400); Red Blood Count 4.45 10^6/uL (4.1-5.3); Red Cell Distribution Width 16.1 % (12.1-15.1); White Blood Count 8.9 10^3/uL (4.0-10.0)
[2021-12-26 03:21] LABS: Estmated Average Glucose 252; Hemoglobin A1C 10.4 % (4.0-6.0)
[2021-12-26 03:33] LABS: Alanine Aminotransferase 15 U/L (0-33); Albumin Level 3.5 g/dL (3.5-5.2); Alkaline Phosphatase 121 IU/L (35-105); Anion Gap 16.4 (5-19); Aspartate Amino Transferase 18 U/L (0-32); Blood Urea Nitrogen 16 mg/dL (6-20); Calcium 9.5 mg/dL (8.5-10.5); Carbon Dioxide 28 mmol/L (22-29); Chloride 100 mmol/L (98-107); Chol HDL Ratio 4.89 mg/dL (0.0-4.40); Cholesterol 137 mg/dL (0-200); Globulin 3.1 g/dL (1.3-4.6); Glomerular Filtration Rate 87.5 mL/min (90-130); Glucose 154 mg/dL (65-115); HDL Cholesterol 28 mg/dL (60-100); LDL Cholesterol Calculated 65 mg/dL (50-129); Magnesium 1.9 mg/dL (1.7-2.3); Osmolality Calculated 296 mOsm/kg (285-295); Phosphorus 4.9 mg/dL (2.5-4.5); Potassium 3.4 mmol/L (3.5-5.1); Sodium 141 mmol/L (136-145); Total Bilirubin 0.2 mg/dL (0.15-1.2); Total Protein 6.6 g/dL (6.6-8.7); Triglycerides 221 mg/dL (0-150); VLDL Cholestrol Calculation 44 mg/dL (0-30)
[2021-12-26] MEDS: perflutren protein-a microsphr 0.22 mg/mL SDV 3 mL IV (04:59)
[2021-12-26] MEDS: gabapentin 400 mg Capsule 800 MG PO (06:28)
[2021-12-26] MEDS: enoxaparin 120 mg/0.8 mL Syringe SUBCUT (06:28)
[2021-12-26 06:32] LABS: Glucose Point of Care 152 mg/dL (70-110)
[2021-12-26] MEDS: insulin lispro 100 unit/1 mL SUBCUT ×3 (07:45→20:30)
[2021-12-26] MEDS: ferrous gluconate 324 mg Tablet PO ×2 (08:59→18:07)
[2021-12-26] MEDS: oxybutynin 5 mg Tablet PO ×2 (08:59→20:30)
[2021-12-26] MEDS: sertraline 100 mg Tablet PO (08:59)
[2021-12-26] MEDS: hydroCHLOROthiazide 25 mg Tablet PO (08:59)
[2021-12-26] MEDS: lisinopril 20 mg Tablet PO (08:59)
[2021-12-26] MEDS: atorvastatin 40 mg Tablet PO (08:59)
[2021-12-26] MEDS: famotidine 20 mg/2 mL INJ IVP ×2 (09:28→20:31)
[2021-12-26] MEDS: sotalol 80 mg Tablet 160 MG PO (09:51)
--- NOTE | 2021-12-26 10:45 | PC.NURSE ---
Patient reports having chest pressure, 12 lead ekg ordered per protocol.
--- NOTE | 2021-12-26 11:32 | PC.NURSE ---
Patient requests nicotine patch Physician orders: 14mg Nicotine patch daily
--- NOTE | 2021-12-26 11:42 | PC.CHAP ---
Pastoral Care Encounter/Spiritual Assessment Type of Contact [] Declined preschool education director visit [] Patient/Family/Request visit [] Outpatient visit [] Follow-up visit [] Physician referral [] Code/Alert [x] Routine visit [] Staff referral [] Actively dying [] Patient sleeping [] Family support [] [] Out of room [] Palliative care [] [] Receiving care in room [] Pre-surgical visit [] Trauma [] Long length of stay [] ICU visit [] Other: Relational/Emotional Strength [x] Patient feels connected with others/family/visitors/staff [] Distress [] Loneliness/isolation [] Abandonment Spirituality of Patient [x] Person of Delicia [x] Attends Taoist of their Delicia [x] Believes in Prayer [] Reads Bible or Mormon materials [] There are Spiritual issues to be addressed Safety Grooving Machine Operator Interventions [x] Prayer [x] Active listening [] Non-anxious presence [] Spiritual/emotional support [] Crisis/trauma care [] Spiritual counseling [] Bereavement support [] Provided bereavement packet [] Provided Bible/devotional materials [] Provided toy/stuffed animal, coloring book to patient or family member [] Provided Communion [] Anointing/[place] [] Salvation [x] Completed spiritual assessment [] Other: Impact on Illness or Injury [] Angry [] Fearful [] Anxious [] Often cries [] Exhaustion [] Unable to work [] Unable to attend congregation [] Unable to walk/stand [] Unable to read [] Unable to drive [] Unable to eat/drink [] Unable to sleep [] Unable to be with family [] Patient intubated [] Other: Summary 10 min Time spent with patient
[2021-12-26] MEDS: nicotine 14 mg Patch 1 PATCH TRANSDERMA (11:44)
[2021-12-26 11:50] LABS: Glucose Point of Care 195 mg/dL (70-110)
--- NOTE | 2021-12-26 14:28 | ECG_ITS ---
[facility] Test Date: 2021-12-26 Pat Name: Halina Escamilla Department: Room: 277 Gender: Female Material Coordinator: : 1970 Requested By: Yaya Stewart Order Number: [id number] Cassie MD: Rafaela Johnson M.D. Measurements Intervals [place] Rate: 58 P: 62 AK: 158 QRS: 43 QRSD: 102 T: 29 QT: 461 QTc: 454 Interpretive Statements SINUS BRADYCARDIA Compared to ECG 12/25/2021 17:16:01 Atrial flutter no longer present Intraventricular conduction delay no longer present Electronically Signed On 12-27-2021 18:45:17 CDT by Rafaela Johnson M.D. [id number]
--- NOTE | 2021-12-26 15:46 | P.PN_ITS ---
Subjective Subjective: Overnight patient has been mostly in normal sinus rhythm with bradycardia with occasional bursts of atrial fibrillation with rapid ventricular response which showed settled down by itself. She is having these episodes almost 2-3 times an hour. Has remained asymptomatic. Denies any nausea, vomit ing, headache. Has remained hemodynamically stable. Vitals/I&O/Wt Last Vital Signs Temp 98.5 F 12/26/21 15:31 Pulse 68 12/26/21 15:31 Resp 18 12/26/21 15:31 BP 101/55 12/26/21 15:31 Pulse Ox 93 12/26/21 15:31 O2 Del Method 12/26/21 15:31 FiO2 28 12/26/21 02:49 12/26/21 12/26/21 12/26/21 06:59 14:59 22:59 Intake Total 480 / 962.25 960 / 960 Balance 480 / 962.25 960 / 960 Weight last 48 hrs Weight 127.459 kg Weight 127.459 kg Weight 127.459 kg Physical Exam Narrative: EXAM NARRATIVE: General: No acute distress, anxious HEENT: PERRLA, pupils bilaterally equal and reactive Chest: Bilateral normal vesicular breath sounds, equal good air entry bilaterally CVS: S1-S2 regular with episodes of missed beats, no murmurs, no tachycardia, no gallops, no rubs Abdomen: Soft, nontender, no organomegaly, bowel sounds present, morbidly obese Neuro: No focal deficits, no facial deformity, AO x3, power 5/5 in all limbs Data : 12/26/21 02:50 12/26/21 02:50 A&P Assessment and plan (1) Paroxysmal A-fib: TSH within normal limits, urinalysis, urine drug screen normal. Care discussed in detail with cardiology. Appreciate recommendations. Echocardiogram pending. Stop sotalol. We will plan to transition over to dofetilide while monitoring QTC. Have ordered dofetilide through pharmacy. In between if patient goes into rapid ventricular response we will start patient on Cardizem drip. Continue with oral Cardizem. Full dose Lovenox 1 mg/kg body weight every 12 hourly for anticoagulation. Status: Acute (2) Dyspnea: Resolved. Most likely secondary to mild CHF from atrial fibrillation rapid ventricular response on admission. Status: Acute (3) Palpitations: Status: Acute (4) Diabetes type 2, controlled: A1c 10.4. Switch to Lantus 40 units twice daily. Insulin sliding scale at moderate dose protocol before meals and at bedtime Status: Acute (5) Hypertension: Goal blood pressure less than 140/90 mmHg. Continue with home dose of Cardizem, lisinopril. Hold off on hydrochlorothiazide. Will uptitrate accordingly. Status: Acute (6) Morbid obesity with BMI of 40.0-44.9, adult: Cannot rule out underlying sleep apnea. Will advise patient for sleep study as an outpatient with primary care provider once social discord is more stable. Status: Acute Plan Full code. Lovenox for DVT prophylaxis Famotidine for PUD prophylaxis Cardiac carb consistent diet. Continue care at [facility]. Attestations Medical Necessity Statement*: Requires further hospitalization for management of paroxysmal A. fib with rapid ventricular response Time Spent in Patient Care: Greater than 35 minutes Coding Level of Care Code Acute Recycling Attendant for [facility] Fwd Diagnoses Paroxysmal A-fib I48.0 Dyspnea R06.00 Palpitations R00.2 Diabetes type 2, controlled E11.9 Hypertension I10 Morbid obesity with BMI of 40.0-44.9, adult E66.01; Z68.41
--- NOTE | 2021-12-26 16:22 | P.PN_ITS ---
Subjective Subjective: Patient has been in and out of atrial flutter with RVR and sinus rhythm/sinus bradycardia Medications: Reviewed: Yes Vitals/I&O/Wt Last Vital Signs Temp 98.5 F 12/26/21 15:31 Pulse 68 12/26/21 15:31 Resp 18 12/26/21 15:31 BP 101/55 12/26/21 15:31 Pulse Ox 93 12/26/21 15:31 O2 Del Method 12/26/21 15:31 FiO2 28 12/26/21 02:49 12/26/21 12/26/21 12/26/21 06:59 14:59 22:59 Intake Total 480 / 962.25 960 / 960 Balance 480 / 962.25 960 / 960 Weight last 48 hrs Weight 281 lb Weight 281 lb Weight 281 lb Physical Exam Const: COMMON NORMALS: no acute distress, patient oriented x3 and alert GENERAL APPEARANCE: cooperative, comfortable, well kempt, well hydrated and other (morbidly obese) HENMT: COMMON NORMALS: hearing grossly normal bilaterally, external ears normal and moist oral mucous membranes FACE & SINUS: normal facial exam NOSE: No nasal discharge present; no Epistaxis present EXTERNAL EAR: Yes external ears normal MOUTH: lip normal Eye: COMMON NORMALS: EOMs intact bilaterally and no scleral icterus GENERAL EYE: appearance normal, both eyes and all related structures ALIGNMENT: Yes alignment normal Neck/C-Spine: COMMON NORMALS: no lymphadenopathy, supple and no JVD GENERAL: Yes normal visual inspection and Yes trachea midline CAROTIDS: Yes normal carotid upstroke Lymph: LYMPHATIC: no lymphadenopathy noted Chest: COMMONS NORMALS: normal inspection of the chest and normal palpation of entire chest wall CHEST: Yes Symmetrical chest wall rise and No tenderness Resp: COMMON NORMALS: clear to auscultation bilaterally EFFORT & INSPECTION: Yes able to speak in complete sentences, No tachypneic, No respiratory distress, No pursed lip breathing, No labored and No Actively coughing AUSCULTATION: clear to auscultation bilaterally, no crackles, no rales, no rhonchi and no wheezes Cardio: COMMON NORMALS: no JVD, regular rhythm, S1 normal heart sound present, S2 normal heart sound present and Peripheral pulses 2+ throughout PALPATION: normal PMI RHYTHM: regular rhythm HEART SOUNDS: S1 normal heart sound present, S2 normal heart sound present, no click, no gallops and no murmurs BRUITS: no carotid bruits PERIPHERAL PULSES: Peripheral pulses 2+ throughout, radial pulses present, posterior tibial pulses present and dorsalis pedis present OTHER: tachycardia+ GI: COMMON NORMALS: Soft to palpation AUSCULTATION: Yes normoactive bowel sounds PALPATION: Yes Soft to palpation, No Tenderness to palpation present (GI), No Guarding due to palpation present (GI) and No Rigid due to palpation PERCUSSION: tympanic to percussion Extremity: GENERAL: No clubbing, No cyanosis, Yes edema and No pallor Neuro: COMMON NORMALS: patient oriented x3, CN's II-XII intact bilaterally and no focal motor deficits SENSORIUM/ORIENTATION: Yes alert Psych: COMMON NORMALS: Normal thought process present and speech normal APPEARANCE: Yes well kempt SPEECH: Yes normal speech MOOD & AFFECT: Yes euthymic mood THOUGHT PROCESS: Normal thought process present THOUGHT CONTENT: Yes Normal thought content present Data : 12/27/21 02:48 12/27/21 02:48 A&P Assessment and plan (1) Paroxysmal atrial flutter: [id number]= 3/9, 1 for HTN, 1 for DM and 1 for female sex -cardizem gtt prn -stop sotalol 160 mg PO BID and plan to transition to Tikosyn day after -start on therapeutic lovenox -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 Status: Acute (2) Paroxysmal A-fib: Status: Acute (3) Hypertension: Status: Acute (4) Morbid obesity with BMI of 40.0-44.9, adult: Status: Acute (5) Diabetes type 2, controlled: Status: Acute (6) Dyslipidemia due to type 2 diabetes mellitus: Status: Acute Plan YU on BiPaP Chronic pain Thank you for allowing me to participate in patient' scare. Please feel free to call with questions or concerns. Attestations Medical Necessity Statement*: needs hospital stay for management of symptomatic atrial flutter Coding Level of Care Code Acute Assessment Services Manager for [facility] Fwd Diagnoses Paroxysmal atrial flutter I48.92 Paroxysmal A-fib I48.0 Hypertension I10 Morbid obesity with BMI of 40.0-44.9, adult E66.01; Z68.41 Diabetes type 2, controlled E11.9 Dyslipidemia due to type 2 diabetes mellitus E11.69; E78.5
[2021-12-26 17:01] LABS: Glucose Point of Care 140 mg/dL (70-110)
[2021-12-26] MEDS: gabapentin 400 mg Capsule 1200 MG PO (18:07)
[2021-12-26 20:15] LABS: Glucose Point of Care 222 mg/dL (70-110)
[2021-12-26] MEDS: ropinirole 2 mg Tablet PO (20:30)
[2021-12-26] MEDS: insulin glargine 100 units/1 mL 45 UNIT SUBCUT (20:31)
[2021-12-27] VITALS (10 sets, daily range): BP systolic 90–123; BP diastolic 51–64; PULSE 50–80; RESP 16–18; TEMP 36–37.1; O2SAT 94–98
[2021-12-27 03:10] LABS: Basophils % 0.4 %; Eosinophils # 0.3 10^3/uL (0.0-0.8); Eosinophils % 3.6 %; Hematocrit 41.7 % (37.0-47.0); Hemoglobin 13.7 g/dL (11.5-15.3); Lymphocytes # 3.1 10^3/uL (0.8-4.8); Mean Corpuscular HGB Conc 32.9 g/dL (30.0-36.0); Mean Corpuscular Hemoglobin 29.6 pg (28.0-34.0); Mean Corpuscular Volume 90.1 fl (81-99); Mean Platelet Volume 11.6 fL (7.4-10.4); Monocytes # 0.7 10^3/uL (0.2-0.9); Monocytes % 8.6 %; Neutrophils # 4.16 10^3/uL (1.8-7.7); Neutrophils % 49.7 %; Nucleated Red Blood Cells % 0 %; Platelet Count 188 10^3/cmm (130-400); Red Blood Count 4.63 10^6/uL (4.1-5.3); Red Cell Distribution Width 16.2 % (12.1-15.1); White Blood Count 8.4 10^3/uL (4.0-10.0)
[2021-12-27 03:50] LABS: Alanine Aminotransferase 16 U/L (0-33); Albumin Level 3.4 g/dL (3.5-5.2); Alkaline Phosphatase 121 IU/L (35-105); Blood Urea Nitrogen 19 mg/dL (6-20); Calcium 9.2 mg/dL (8.5-10.5); Carbon Dioxide 27 mmol/L (22-29); Chloride 99 mmol/L (98-107); Creatinine Clr Calc Pharmacy 150.5423; Globulin 3.2 g/dL (1.3-4.6); Glomerular Filtration Rate 104.6 mL/min (90-130); Glucose 169 mg/dL (65-115); Osmolality Calculated 290 mOsm/kg (285-295); Sodium 137 mmol/L (136-145); Total Bilirubin 0.3 mg/dL (0.15-1.2); Total Protein 6.6 g/dL (6.6-8.7)
[2021-12-27 04:02] LABS: Anion Gap 14.6 (5-19); Aspartate Amino Transferase 23 U/L (0-32); Potassium 3.6 mmol/L (3.5-5.1)
[2021-12-27] MEDS: gabapentin 400 mg Capsule 800 MG PO (06:18)
[2021-12-27 06:28] LABS: Glucose Point of Care 182 mg/dL (70-110)
[2021-12-27] MEDS: atorvastatin 40 mg Tablet PO (08:36)
[2021-12-27] MEDS: sertraline 100 mg Tablet PO (08:36)
[2021-12-27] MEDS: ferrous gluconate 324 mg Tablet PO ×2 (08:36→18:37)
[2021-12-27] MEDS: nicotine 14 mg Patch 1 PATCH TRANSDERMA (08:36)
[2021-12-27] MEDS: famotidine 20 mg/2 mL INJ IVP ×2 (08:38→22:51)
[2021-12-27] MEDS: insulin lispro 100 unit/1 mL SUBCUT ×4 (08:38→22:22)
[2021-12-27] MEDS: oxybutynin 5 mg Tablet PO ×2 (08:46→22:19)
[2021-12-27] MEDS: insulin glargine 100 units/1 mL 45 UNIT SUBCUT ×2 (08:46→22:21)
--- NOTE | 2021-12-27 10:14 | PC.NURSE ---
spoke with Dr montgomery of concerns of patient having low blood pressure though out the night instructions to stop lisinopril at this time
[2021-12-27 11:36] LABS: Glucose Point of Care 239 mg/dL (70-110)
--- NOTE | 2021-12-27 13:28 | P.PN_ITS ---
Subjective Subjective: No acute events overnight. Has remained in sinus bradycardia. Less frequent episodes of atrial fibrillation with rapid ventricular response. Today morning seen after having a shower. States this feeling better. Denies any nausea, vomiting, headache. Vitals/I&O/Wt Last Vital Signs Temp 98.5 F 12/27/21 11:16 Pulse 50 L 12/27/21 11:16 Resp 18 12/27/21 11:16 BP 95/54 12/27/21 11:16 Pulse Ox 97 12/27/21 11:16 O2 Del Method 12/27/21 11:16 FiO2 28 12/26/21 02:49 12/26/21 12/27/21 12/27/21 22:59 06:59 14:59 Intake Total 960 / 1920 360 / 2280 600 / 600 Output Total 200 / 200 Balance 960 / 1920 160 / 2080 600 / 600 Weight last 48 hrs Weight 127.459 kg Weight 127.459 kg Weight 127.459 kg Physical Exam Narrative: EXAM NARRATIVE: General: No acute distress, HEENT: PERRLA, pupils bilaterally equal and reactive Chest: Bilateral normal vesicular breath sounds, equal good air entry bilaterally CVS: S1-S2 regular with episodes of missed beats, no murmurs, no tachycardia, no gallops, no rubs Abdomen: Soft, nontender, no organomegaly, bowel sounds present, morbidly obese Neuro: No focal deficits, no facial deformity, AO x3, power 5/5 in all limbs Data : 12/27/21 02:48 12/27/21 02:48 A&P Assessment and plan (1) Paroxysmal A-fib: TSH within normal limits, urinalysis, urine drug screen normal. Appreciate cardiology recommendations. Echocardiogram showed an EF of 60 to 65% without any regional wall motion abnormality or valvular abnormality. Sotalol stopped on 12/26. Plan for possible dofetilide initiation as per cardi ology recommendations on 12/28. Awaiting medication from outpatient pharmacy. In the interim if patient goes into rapid ventricular response we will try with Cardizem drip as per blood pressure permeability. Continue with oral Cardizem for now Full dose Lovenox 1 mg/kg body weight every 12 hourly for anticoagulation. Status: Acute (2) Dyspnea: Resolved. Most likely secondary to mild CHF from atrial fibrillation rapid ventricular response on admission. Status: Acute (3) Palpitations: Status: Acute (4) Diabetes type 2, controlled: A1c 10.4. Switch to Lantus 40 units twice daily. Insulin sliding scale at moderate dose protocol before meals and at bedtime Status: Acute (5) Hypertension: Goal blood pressure less than 140/90 mmHg. Continue with oral Cardizem. Hold off on lisinopril, hydrochlorothiazide. Status: Acute (6) Morbid obesity with BMI of 40.0-44.9, adult: Patient has underlying sleep apnea. He uses CPAP at night. CPAP nightly. Status: Acute (7) Obstructive sleep apnea: Status: Acute Plan Full code. Lovenox for DVT prophylaxis Famotidine for PUD prophylaxis Cardiac carb consistent diet. Continue care at [facility]. Attestations Medical Necessity Statement*: Requires further hospitalization for symptomatic atrial fibrillation/flutter Time Spent in Patient Care: Greater than 35 minutes Coding Level of Care Code Acute Software Development Coordinator for [facility] Fwd Diagnoses Paroxysmal A-fib I48.0 Dyspnea R06.00 Palpitations R00.2 Diabetes type 2, controlled E11.9 Hypertension I10 Morbid obesity with BMI of 40.0-44.9, adult E66.01; Z68.41 Obstructive sleep apnea G47.33
--- NOTE | 2021-12-27 14:23 | PM.PN ---
Subjective Subjective: Feels better She has remained more in SR today. Few runs of atrial flutter Medications: Reviewed: Yes Vitals/I&O/Wt Last Vital Signs Temp 98.5 F 12/27/21 11:16 Pulse 62 12/27/21 14:00 Resp 18 12/27/21 11:16 BP 95/54 12/27/21 11:16 Pulse Ox 97 12/27/21 11:16 O2 Del Method 12/27/21 11:16 FiO2 28 12/26/21 02:49 12/26/21 12/27/21 12/27/21 22:59 06:59 14:59 Intake Total 960 / 1920 360 / 2280 600 / 600 Output Total 200 / 200 Balance 960 / 1920 160 / 2080 600 / 600 Weight last 48 hrs Weight 281 lb Weight 281 lb Weight 281 lb Physical Exam Const: COMMON NORMALS: no acute distress, patient oriented x3 and alert GENERAL APPEARANCE: cooperative, comfortable, well kempt, well hydrated and other (morbidly obese) HENMT: COMMON NORMALS: hearing grossly normal bilaterally, external ears normal and moist oral mucous membranes FACE & SINUS: normal facial exam EXTERNAL EAR: Yes external ears normal Eye: COMMON NORMALS: EOMs intact bilaterally and no scleral icterus GENERAL EYE: appearance normal, both eyes and all related structures ALIGNMENT: Yes alignment normal Neck/C-Spine: COMMON NORMALS: no lymphadenopathy, supple and no JVD GENERAL: Yes normal visual inspection and Yes trachea midline CAROTIDS: Yes normal carotid upstroke Lymph: LYMPHATIC: no lymphadenopathy noted Chest: COMMONS NORMALS: normal inspection of the chest and normal palpation of entire chest wall CHEST: Yes Symmetrical chest wall rise and No tenderness Resp: COMMON NORMALS: clear to auscultation bilaterally EFFORT & INSPECTION: Yes able to speak in complete sentences, No tachypneic, No respiratory distress, No pursed lip breathing, No labored and No Actively coughing AUSCULTATION: clear to auscultation bilaterally, no crackles, no rales, no rhonchi and no wheezes Cardio: COMMON NORMALS: no JVD, regular rhythm, S1 normal heart sound present, S2 normal heart sound present and Peripheral pulses 2+ throughout PALPATION: normal PMI RHYTHM: regular rhythm HEART SOUNDS: S1 normal heart sound present, S2 normal heart sound present, no click, no gallops and no murmurs BRUITS: no carotid bruits PERIPHERAL PULSES: Peripheral pulses 2+ throughout, radial pulses present, posterior tibial pulses present and dorsalis pedis present OTHER: tachycardia+ GI: COMMON NORMALS: Soft to palpation AUSCULTATION: Yes normoactive bowel sounds PALPATION: Yes Soft to palpation, No Tenderness to palpation present (GI), No Guarding due to palpation present (GI) and No Rigid due to palpation PERCUSSION: tympanic to percussion Extremity: GENERAL: No clubbing, No cyanosis, No edema and No pallor Neuro: COMMON NORMALS: patient oriented x3, CN's II-XII intact bilaterally and no focal motor deficits SENSORIUM/ORIENTATION: Yes alert Psych: COMMON NORMALS: Normal thought process present and speech normal APPEARANCE: Yes well kempt SPEECH: Yes normal speech MOOD & AFFECT: Yes euthymic mood THOUGHT PROCESS: Normal thought process present THOUGHT CONTENT: Yes Normal thought content present Data : 12/27/21 02:48 12/27/21 02:48 Other data: Records were received from [facility] and reviewed: #Transthoracic echocardiogram 31 July 2021: Normal left ankle systolic function and size. Mild concentric left ventricular hypertrophy. LVEF 63%. Normal left atrial size. No significant valvular abnormality. #ZIO monitor 07 August 2021: Sinus rhythm with average heart rate of 76 bpm. 1 run of 5 beats of ventricular tachycardia. 4 SVT runs with fastest interval lasting 7 beats. Less than 1% supraventricular ectopy in 2.5% isolated ventricular ectopy. #Cardiac catheterization 2013 revealed nonobstructive coronary artery disease with EF of 65 to 70% with slightly elevated LVEDP of 24 mmHg. A&P Assessment and plan (1) Paroxysmal atrial flutter: [id number]= 3/9, 1 for HTN, 1 for DM and 1 for female sex -cardizem gtt prn -stop sotalol 160 mg PO BID and plan to transition to Tikosyn tomorrow -started on therapeutic lovenox Status: Acute (2) Paroxysmal A-fib: Status: Acute (3) Hypertension: Status: Acute (4) Morbid obesity with BMI of 40.0-44.9, adult: Status: Acute (5) Diabetes type 2, controlled: Status: Acute (6) Dyslipidemia due to type 2 diabetes mellitus: Status: Acute Plan YU on BiPaP COPD Chronic pain Tobacco abuse Hyperlipidemia Diabetic neuropathy Thank you for allowing me to participate in patient' scare. Please feel free to call with questions or concerns. Attestations Medical Necessity Statement*: needs hospital stay for management of paroxysmal atrial flutter Coding Level of Care Code Acute Catia Designer for [facility] Fwd Exam Comprehensive Diagnoses Paroxysmal atrial flutter I48.92 Paroxysmal A-fib I48.0 Hypertension I10 Morbid obesity with BMI of 40.0-44.9, adult E66.01; Z68.41 Diabetes type 2, controlled E11.9 Dyslipidemia due to type 2 diabetes mellitus E11.69; E78.5
[2021-12-27 17:33] LABS: Glucose Point of Care 171 mg/dL (70-110)
[2021-12-27] MEDS: enoxaparin 120 mg/0.8 mL Syringe SUBCUT (18:37)
[2021-12-27 21:20] LABS: Glucose Point of Care 275 mg/dL (70-110)
[2021-12-27] MEDS: gabapentin 400 mg Capsule 1200 MG PO (22:18)
[2021-12-27] MEDS: ropinirole 2 mg Tablet PO (22:18)
[2021-12-28] VITALS (11 sets, daily range): BP systolic 98–156; BP diastolic 52–101; PULSE 56–82; RESP 13–21; TEMP 36.4–36.8; O2SAT 95–99
[2021-12-28] MEDS: enoxaparin 120 mg/0.8 mL Syringe SUBCUT ×2 (05:38→17:35)
[2021-12-28] MEDS: gabapentin 400 mg Capsule 800 MG PO (05:38)
[2021-12-28 05:39] LABS: Magnesium 1.9 mg/dL (1.7-2.3)
[2021-12-28 06:18] LABS: Glucose Point of Care 152 mg/dL (70-110)
[2021-12-28 07:28] LABS: Basophils # 0.1 10^3/uL (0.0-0.1); Basophils % 0.7 %; Eosinophils # 0.3 10^3/uL (0.0-0.8); Eosinophils % 3.5 %; Hematocrit 40.4 % (37.0-47.0); Lymphocytes # 3.2 10^3/uL (0.8-4.8); Mean Corpuscular HGB Conc 32.2 g/dL (30.0-36.0); Mean Corpuscular Hemoglobin 29.8 pg (28.0-34.0); Mean Corpuscular Volume 92.7 fl (81-99); Mean Platelet Volume 12.3 fL (7.4-10.4); Monocytes # 0.6 10^3/uL (0.2-0.9); Monocytes % 7.6 %; Neutrophils # 3.48 10^3/uL (1.8-7.7); Neutrophils % 45.7 %; Nucleated Red Blood Cells % 0 %; Platelet Count 191 10^3/cmm (130-400); Red Blood Count 4.36 10^6/uL (4.1-5.3); Red Cell Distribution Width 15.9 % (12.1-15.1); White Blood Count 7.6 10^3/uL (4.0-10.0)
--- NOTE | 2021-12-28 07:33 | P.PN_ITS ---
Subjective Subjective: Feels well Medications: Reviewed: Yes Vitals/I&O/Wt Last Vital Signs Temp 97.8 F 12/28/21 04:00 Pulse 57 L 12/28/21 06:00 Resp 15 12/28/21 04:00 BP 98/53 12/28/21 04:00 Pulse Ox 99 12/28/21 04:00 O2 Del Method 12/28/21 04:00 O2 Flow Rate 1.5 12/27/21 20:09 FiO2 28 12/26/21 02:49 12/27/21 12/28/21 12/28/21 22:59 06:59 14:59 Intake Total 960 / 1560 240 / 1800 Balance 960 / 1560 240 / 1800 Weight last 48 hrs Weight 281 lb Weight 281 lb Physical Exam Const: COMMON NORMALS: no acute distress, patient oriented x3 and alert GENERAL APPEARANCE: cooperative, comfortable, well kempt, well hydrated and other (morbidly obese) HENMT: COMMON NORMALS: hearing grossly normal bilaterally, external ears normal and moist oral mucous membranes FACE & SINUS: normal facial exam EXTERNAL EAR: Yes external ears normal Eye: COMMON NORMALS: EOMs intact bilaterally and no scleral icterus GENERAL EYE: appearance normal, both eyes and all related structures ALIGNMENT: Yes alignment normal Neck/C-Spine: COMMON NORMALS: no lymphadenopathy, supple and no JVD GENER AL: Yes normal visual inspection and Yes trachea midline CAROTIDS: Yes normal carotid upstroke Lymph: LYMPHATIC: no lymphadenopathy noted Chest: COMMONS NORMALS: normal inspection of the chest and normal palpation of entire chest wall CHEST: Yes Symmetrical chest wall rise and No tenderness Resp: COMMON NORMALS: clear to auscultation bilaterally EFFORT & INSPECTION: Yes able to speak in complete sentences, No tachypneic, No respiratory distress, No pursed lip breathing, No labored and No Actively coughing AUSCULTATION: clear to auscultation bilaterally, no crackles, no rales, no rhonchi and no wheezes Cardio: COMMON NORMALS: no JVD, regular rhythm, S1 normal heart sound present, S2 normal heart sound present and Peripheral pulses 2+ throughout PALPATION: normal PMI RHYTHM: regular rhythm HEART SOUNDS: S1 normal heart sound present, S2 normal heart sound present, no click, no gallops and no murmurs BRUITS: no carotid bruits PERIPHERAL PULSES: Peripheral pulses 2+ throughout, radial pulses present, posterior tibial pulses present and dorsalis pedis present OTHER: tachycardia+ GI: COMMON NORMALS: Soft to palpation AUSCULTATION: Yes normoactive bowel sounds PALPATION: Yes Soft to palpation, No Tenderness to palpation present (GI), No Guarding due to palpation present (GI) and No Rigid due to palpation PERCUSSION: tympanic to percussion Extremity: GENERAL: No clubbing, No cyanosis, No edema and No pallor Neuro: COMMON NORMALS: patient oriented x3, CN's II-XII intact bilaterally and no focal motor deficits SENSORIUM/ORIENTATION: Yes alert Psych: COMMON NORMALS: Normal thought process present and speech normal APPEARANCE: Yes well kempt SPEECH: Yes normal speech MOOD & AFFECT: Yes euthymic mood THOUGHT PROCESS: Normal thought process present THOUGHT CONTENT: Yes Normal thought content present Data : 12/28/21 05:04 12/28/21 05:04 A&P Assessment and plan (1) Paroxysmal atrial flutter: [id number]= 3/9, 1 for HTN, 1 for DM and 1 for female sex -cardizem gtt prn -stop sotalol 160 mg PO BID and plan to start on Tikosyn 250 mcg twice a day -maintain potassium >4 and magnesium >2. -started on therapeutic lovenox, transition to Eliquis Status: Acute (2) Paroxysmal A-fib: Status: Acute (3) Hypertension: Status: Acute (4) Morbid obesity with BMI of 40.0-44.9, adult: Status: Acute (5) Diabetes type 2, controlled: Status: Acute (6) Dyslipidemia due to type 2 diabetes mellitus: Status: Acute Plan YU on BiPaP COPD Chronic pain Tobacco abuse Hyperlipidemia Diabetic neuropathy Thank you for allowing me to participate in patient' scare. Please feel free to call with questions or concerns. Attestations Medical Necessity Statement*: needs hospital stay for management of paroxysmal atrial flutter and Tikosyn monitoring Coding Level of Care Code Acute Mental Health Program Specialist for [employer] Fwd Exam Comprehensive Diagnoses Paroxysmal atrial flutter I48.92 Paroxysmal A-fib I48.0 Hypertension I10 Morbid obesity with BMI of 40.0-44.9, adult E66.01; Z68.41 Diabetes type 2, controlled E11.9 Dyslipidemia due to type 2 diabetes mellitus E11.69; E78.5
[2021-12-28 07:49] LABS: Alanine Aminotransferase 18 U/L (0-33); Albumin Level 3.7 g/dL (3.5-5.2); Alkaline Phosphatase 117 IU/L (35-105); Aspartate Amino Transferase 22 U/L (0-32); Blood Urea Nitrogen 17 mg/dL (6-20); Calcium 8.9 mg/dL (8.5-10.5); Carbon Dioxide 29 mmol/L (22-29); Chloride 101 mmol/L (98-107); Creatinine Clr Calc Pharmacy 150.5423; Globulin 3.1 g/dL (1.3-4.6); Glomerular Filtration Rate 104.6 mL/min (90-130); Glucose 143 mg/dL (65-115); Osmolality Calculated 294 mOsm/kg (285-295); Sodium 140 mmol/L (136-145); Total Bilirubin 0.3 mg/dL (0.15-1.2); Total Protein 6.8 g/dL (6.6-8.7)
[2021-12-28] MEDS: ferrous gluconate 324 mg Tablet PO ×2 (08:21→17:35)
[2021-12-28] MEDS: oxybutynin 5 mg Tablet PO ×2 (08:21→20:04)
[2021-12-28] MEDS: insulin lispro 100 unit/1 mL SUBCUT ×4 (08:21→20:04)
[2021-12-28] MEDS: sertraline 100 mg Tablet PO (08:21)
[2021-12-28] MEDS: atorvastatin 40 mg Tablet PO (08:22)
[2021-12-28] MEDS: baclofen 10 mg Tablet PO (08:22)
[2021-12-28] MEDS: nicotine 14 mg Patch 1 PATCH TRANSDERMA (08:23)
[2021-12-28] MEDS: famotidine 20 mg/2 mL INJ IVP (08:31)
[2021-12-28] MEDS: insulin glargine 100 units/1 mL 45 UNIT SUBCUT (08:32)
--- NOTE | 2021-12-28 08:41 | ECG_ITS ---
[facility] Test Date: 2021-12-28 Pat Name: Halina Escamilla Department: Room: 277 Gender: Female Landscape Drafter: : 1970 Requested By: Rafaela Johnson Order Number: [id number] Cassie MD: Mary Emmanuel M.D. Measurements Intervals [place] Rate: 64 P: 60 [place]: 159 QRS: 27 QRSD: 102 T: 15 QT: 420 QTc: 435 Interpretive Statements SINUS RHYTHM MODERATE ST DEPRESSION [0.05+ mV ST DEPRESSION] Compared to ECG 12/26/2021 14:28:36 ST (T wave) deviation now present Sinus bradycardia no longer present Electronically Signed On 12-28-2021 18:33:05 CDT by Mary Emmanuel M.D. [id number]
[2021-12-28 11:22] LABS: Glucose Point of Care 208 mg/dL (70-110)
--- NOTE | 2021-12-28 12:45 | ECG_ITS ---
[facility] Test Date: 2021-12-28 Pat Name: Halina Escamilla Department: Room: 277 Gender: Female Engineer Systems: : 1970 Requested By: Rafaela Johnson Order Number: [id number] Cassie MD: Rafaela Johnson M.D. Measurements Intervals [place] Rate: 54 P: 58 [place]: 165 QRS: 44 QRSD: 94 T: 31 QT: 435 QTc: 413 Interpretive Statements SINUS BRADYCARDIA WITH SINUS ARRHYTHMIA Compared to ECG 12/28/2021 08:41:09 Sinus rhythm no longer present ST (T wave) deviation no longer present Electronically Signed On 12-28-2021 12:55:02 CDT by Rafaela Johnson M.D. [id number]
--- NOTE | 2021-12-28 14:13 | PM.PN ---
Subjective Subjective: No acute events overnight. Patient has remained in sinus bradycardia overnight. Some heart rate on telemetry going down to low 40s. Patient has remained asymptomatic. Today morning sitting up in bedside. Denies any nausea, vomiting, dizziness, headache. Vitals/I&O/Wt Last Vital Signs Temp 97.8 F 12/28/21 04:00 Pulse 69 12/28/21 11:17 Resp 21 H 12/28/21 11:17 BP 127/77 12/28/21 11:17 Pulse Ox 96 12/28/21 11:17 O2 Del Method 12/28/21 11:17 O2 Flow Rate 1.5 12/27/21 20:09 FiO2 28 12/26/21 02:49 12/27/21 12/28/21 12/28/21 22:59 06:59 14:59 Intake Total 960 / 1560 240 / 1800 980 / 980 Balance 960 / 1560 240 / 1800 980 / 980 Weight last 48 hrs Weight 127.459 kg Physical Exam Narrative: EXAM NARRATIVE: General: No acute distress, HEENT: PERRLA, pupils bilaterally equal and reactive Chest: Bilateral normal vesicular breath sounds, equal good air entry bilaterally CVS: S1-S2 regular with episodes of missed beats, no murmurs, no tachycardia, no gallops, no rubs Abdomen: Soft, nontender, no organomegaly, bowel sounds present, morbidly obese Neuro: No focal deficits, no facial deformity, AO x3, power 5/5 in all limbs Data : 12/28/21 05:04 12/28/21 05:04 A&P Assessment and plan (1) Paroxysmal A-fib: TSH within normal limits, urinalysis, urine drug screen normal. Appreciate cardiology recommendations. Echocardiogram showed an EF of 60 to 65% without any regional wall motion abnormality or valvular abnormality. Sotalol stopped on 12/26. Plan for possible dofetilide initiation as per cardiology recommendations on 12/28. Awaiting medication from outpatient pharmacy. In the interim if patient goes into rapid ventricular response we will try with Cardizem drip as per blood pressure permeability. Continue with oral Cardizem for now Full dose Lovenox 1 mg/kg body weight every 12 hourly for anticoagulation. Status: Acute (2) Dyspnea: Resolved. Most likely secondary to mild CHF from atrial fibrillation rapid ventricular response on admission. Status: Acute (3) Palpitations: Status: Acute (4) Diabetes type 2, controlled: A1c 10.4. Switch to Lantus 40 units twice daily. Insulin sliding scale at moderate dose protocol before meals and at bedtime Status: Acute (5) Hypertension: Goal blood pressure less than 140/90 mmHg. Continue with oral Cardizem. Hold off on lisinopril, hydrochlorothiazide. Status: Acute (6) Morbid obesity with BMI of 40.0-44.9, adult: Patient has underlying sleep apnea. He uses CPAP at night. CPAP nightly. Status: Acute (7) Obstructive sleep apnea: Status: Acute Plan Full code. Lovenox for DVT prophylaxis Famotidine for PUD prophylaxis Cardiac carb consistent diet. Continue care at [facility]. Plan for the day: Plan to initiate Tikosyn today while monitoring QTC. Will dose as per QT monitoring and heart rate. Plan for EKG 2 hours after each dose of Tikosyn. Ambulate. Increase Lantus to 50 units twice daily Attestations Medical Necessity Statement*: Requires further more hospitalization for management of symptomatic paroxysmal atrial flutter/fibrillation Time Spent in Patient Care: Greater than 35 minutes Coding Level of Care Code Acute Telecommunications Administrator for [facility] Fwd Diagnoses Paroxysmal A-fib I48.0 Dyspnea R06.00 Palpitations R00.2 Diabetes type 2, controlled E11.9 Hypertension I10 Morbid obesity with BMI of 40.0-44.9, adult E66.01; Z68.41 Obstructive sleep apnea G47.33
[2021-12-28 17:34] LABS: Glucose Point of Care 163 mg/dL (70-110)
[2021-12-28 19:59] LABS: Glucose Point of Care 224 mg/dL (70-110)
[2021-12-28] MEDS: ropinirole 2 mg Tablet PO (20:03)
[2021-12-28] MEDS: famotidine 20 mg Tablet PO (20:03)
[2021-12-28] MEDS: insulin glargine 100 units/1 mL 50 UNIT SUBCUT (20:04)
[2021-12-28] MEDS: gabapentin 400 mg Capsule 1200 MG PO (20:04)
[2021-12-28] MEDS: ondansetron 2 mg/ML SDV 2 mL 4 MG IVP (21:53)
--- NOTE | 2021-12-28 22:00 | ECG_ITS ---
[facility] Test Date: 2021-12-28 Pat Name: Halina Escamilla Department: Room: 277 Gender: Female Bank Sales And Service Manager: : 1970 Requested By: Rafaela Johnson Order Number: [id number] Cassie MD: Troy Anderson M.D. Measurements Intervals [place] Rate: 67 P: 61 [place]: 163 QRS: 53 QRSD: 97 T: 35 QT: 425 QTc: 449 Interpretive Statements SINUS RHYTHM WITH OCCASIONAL VENTRICULAR PREMATURE COMPLEXES Compared to ECG 12/28/2021 12:45:06 Ventricular premature complex(es) now present Sinus bradycardia no longer present Sinus arrhythmia no longer present Electronically Signed On 12-29-2021 20:34:16 CDT by Troy Anderson M.D. [email or web address].[id number]
[2021-12-29] VITALS (9 sets, daily range): BP systolic 116–163; BP diastolic 65–93; PULSE 56–105; RESP 16–18; TEMP 36.4–36.9; O2SAT 94–99
[2021-12-29] MEDS: bisacodyl 5 mg Tablet 10 MG PO (05:45)
[2021-12-29] MEDS: gabapentin 400 mg Capsule 800 MG PO (05:45)
[2021-12-29] MEDS: enoxaparin 120 mg/0.8 mL Syringe SUBCUT ×2 (05:46→16:54)
[2021-12-29 06:51] LABS: Glucose Point of Care 157 mg/dL (70-110)
[2021-12-29] MEDS: sertraline 100 mg Tablet PO (08:14)
[2021-12-29] MEDS: ferrous gluconate 324 mg Tablet PO ×2 (08:14→16:54)
[2021-12-29] MEDS: atorvastatin 40 mg Tablet PO (08:14)
[2021-12-29] MEDS: famotidine 20 mg Tablet PO ×2 (08:15→20:30)
[2021-12-29] MEDS: nicotine 14 mg Patch 1 PATCH TRANSDERMA (08:15)
[2021-12-29] MEDS: oxybutynin 5 mg Tablet PO ×2 (08:15→20:31)
[2021-12-29] MEDS: insulin lispro 100 unit/1 mL SUBCUT ×4 (08:16→21:11)
[2021-12-29] MEDS: insulin glargine 100 units/1 mL 50 UNIT SUBCUT ×2 (08:20→21:10)
[2021-12-29] MEDS: lactulose oral liq 20 gm/30 mL UDC 10 GM PO (08:25)
--- NOTE | 2021-12-29 08:54 | P.PN_ITS ---
Subjective Subjective: Patient is doing well. No complaints of chest pain, palpitations or shortness of breath. Vitals/I&O/Wt Last Vital Signs Temp 97.5 F L 12/29/21 08:00 Pulse 64 12/29/21 08:00 Resp 16 12/29/21 08:00 BP 126/73 12/29/21 08:00 Pulse Ox 99 12/29/21 08:00 O2 Del Method 12/29/21 08:00 O2 Flow Rate 1.5 12/27/21 20:09 FiO2 28 12/26/21 02:49 12/28/21 12/29/21 12/29/21 22:59 06:59 14:59 Intake Total 600 / 1580 Balance 600 / 1580 Weight last 48 hrs Weight 281 lb Physical Exam Narrative: GENERAL: Patient is alert, awake and oriented x3. [] NECK: No jugular vein distension. [] HEENT: No cyanosis. No icterus. No pallor. [] HEART: Regular S1 and S2. No murmur, rub or gallop. [] LUNGS: Clear to auscultate bilaterally. [] ABDOMEN: Soft, nontender and nondistended. Positive bowel sounds. No guarding, rebound or tenderness. [] CENTRAL NERVOUS SYSTEM: Grossly nonfocal. [] EXTREMITIES: Lower extremities with 1+ edema bilaterally. Pulses palpable in the lower extremities, both dorsalis pedis and posterior tibial. [] Data : 12/28/21 05:04 12/29/21 04:45 A&P Assessment and plan (1) Paroxysmal atrial flutter: [id number]= 3/9, 1 for HTN, 1 for DM and 1 for female sex -cardizem gtt prn Patient has been started on Tikosyn 250 MCG twice a day. She is staying in sinus rhythm. QTc has increased, will continue to monitor. If stays below 500 by tomorrow morning, can be discharged tomorrow Continue anticoagulation. Can switch to Eliquis Status: Acute (2) Paroxysmal A-fib: Status: Acute (3) Hypertension: Status: Acute (4) Morbid obesity with BMI of 40.0-44.9, adult: Status: Acute (5) Diabetes type 2, controlled: Status: Acute (6) Dyslipidemia due to type 2 diabetes mellitus: Status: Acute Plan YU on BiPaP COPD Chronic pain Tobacco abuse Hyperlipidemia Diabetic neuropathy Thank you for allowing me to participate in patient' scare. Please feel free to call with questions or concerns. Attestations Medical Necessity Statement*: Care expected to cross 2 midnights. Coding Level of Care Code Acute Chief Solution Architect for [employer] Fwd Diagnoses Paroxysmal atrial flutter I48.92 Paroxysmal A-fib I48.0 Hypertension I10 Morbid obesity with BMI of 40.0-44.9, adult E66.01; Z68.41 Diabetes type 2, controlled E11.9 Dyslipidemia due to type 2 diabetes mellitus E11.69; E78.5
[2021-12-29 08:58] LABS: Blood Urea Nitrogen 14 mg/dL (6-20); Calcium 9.2 mg/dL (8.5-10.5); Carbon Dioxide 28 mmol/L (22-29); Chloride 101 mmol/L (98-107); Creatinine Clr Calc Pharmacy 150.5423; Glomerular Filtration Rate 104.6 mL/min (90-130); Glucose 175 mg/dL (65-115); NT Pro B Type Natriuretic Pept 125 pg/mL (0-125); Osmolality Calculated 295 mOsm/kg (285-295); Sodium 140 mmol/L (136-145)
[2021-12-29 09:00] LABS: Anion Gap 14.9 (5-19); Potassium 3.9 mmol/L (3.5-5.1)
--- NOTE | 2021-12-29 09:12 | PC.SOCIAL ---
IMM update IMM Updated with patient. Verbalized an understanding. Copy Pg 2 provided. Initialled, dated, timed, and placed in chart.
--- NOTE | 2021-12-29 10:35 | ECG_ITS ---
[facility] Test Date: 2021-12-29 Pat Name: Halina Escamilla Department: Room: 277 Gender: Female Upper Cutter Machine: : 1970 Requested By: Yaya Stewart Order Number: [id number] Cassie MD: Troy Anderson M.D. Measurements Intervals [place] Rate: 57 P: 72 [place]: 158 QRS: 62 QRSD: 102 T: 59 QT: 483 QTc: 471 Interpretive Statements SINUS BRADYCARDIA PROLONGED QT INTERVAL Compared to ECG 12/28/2021 21:47:54 Prolonged QT interval now present Sinus rhythm no longer present Ventricular premature complex(es) no longer present Electronically Signed On 12-29-2021 20:33:27 CDT by Troy Anderson M.D. [id number]
--- NOTE | 2021-12-29 11:22 | PM.PN ---
Subjective Subjective: No acute events overnight. Has remained stable after initiation of Tikosyn. EKG done today morning showed a QTC of 470. Patient denies of having any complaints other than constipation. Stable CMP and magnesium. Medications: Reviewed: Yes Vitals/I&O/Wt Last Vital Signs Temp 97.5 F L 12/29/21 08:00 Pulse 64 12/29/21 08:00 Resp 16 12/29/21 08:00 BP 126/73 12/29/21 08:00 Pulse Ox 99 12/29/21 08:00 O2 Del Method 12/29/21 08:00 O2 Flow Rate 1.5 12/27/21 20:09 FiO2 28 12/26/21 02:49 12/28/21 12/29/21 12/29/21 22:59 06:59 14:59 Intake Total 600 / 1580 354 / 354 Balance 600 / 1580 354 / 354 Weight last 48 hrs Weight 127.459 kg Physical Exam Narrative: EXAM NARRATIVE: General: No acute distress, HEENT: PERRLA, pupils bilaterally equal and reactive Chest: Bilateral normal vesicular breath sounds, equal good air entry bilaterally CVS: S1-S2 regular with episodes of missed beats, no murmurs, no tachycardia, no gallops, no rubs Abdomen: Soft, nontender, no organomegaly, bowel sounds present, morbidly obese Neuro: No focal deficits, no facial deformity, AO x3, power 5/5 in all limbs Data : 12/28/21 05:04 12/29/21 04:45 A&P Assessment and plan (1) Paroxysmal A-fib: TSH within normal limits, urinalysis, urine drug screen normal. Appreciate cardiology recommendations. Echocardiogram showed an EF of 60 to 65% without any regional wall motion abnormality or valvular abnormality. Sotalol stopped on 12/26. Plan for possible dofetilide initiation as per cardiology recommendations on 12/28. Awaiting medication from outpatient pharmacy. In the interim if patient goes into rapid ventricular response we will try with Cardizem drip as per blood pressure permeability. Continue with oral Cardizem for now Full dose Lovenox 1 mg/kg body weight every 12 hourly for anticoagulation. Status: Acute (2) Dyspnea: Resolved. Most likely secondary to mild CHF from atrial fibrillation rapid ventricular response on admission. Status: Acute (3) Palpitations: Status: Acute (4) Diabetes type 2, controlled: A1c 10.4. Switch to Lantus 40 units twice daily. Insulin sliding scale at moderate dose protocol before meals and at bedtime Status: Acute (5) Hypertension: Goal blood pressure less than 140/90 mmHg. Continue with oral Cardizem. Hold off on lisinopril, hydrochlorothiazide. Status: Acute (6) Morbid obesity with BMI of 40.0-44.9, adult: Patient has underlying sleep apnea. He uses CPAP at night. CPAP nightly. Status: Acute (7) Obstructive sleep apnea: Status: Acute Plan Full code. Lovenox for DVT prophylaxis Famotidine for PUD prophylaxis Cardiac carb consistent diet. Continue care at [facility]. Plan for the day: Continue with Tikosyn to 50 mg twice daily. EKG 2 hours after each dose. CMP and magnesium stable. Blood sugars better. Continue with current dose of Lantus. Continues to do well plan to discharge in next 24 hours. Attestations Medical Necessity Statement*: Requires further hospitalization for management of symptomatic atrial flutter/fibrillation Time Spent in Patient Care: Greater than 35 minutes Coding Level of Care Code Acute Beauty Sales Consultant for Chg Fwd Diagnoses Paroxysmal A-fib I48.0 Dyspnea R06.00 Palpitations R00.2 Diabetes type 2, controlled E11.9 Hypertension I10 Morbid obesity with BMI of 40.0-44.9, adult E66.01; Z68.41 Obstructive sleep apnea G47.33
[2021-12-29 16:08] LABS: Glucose Point of Care 205 mg/dL (70-110)
[2021-12-29 16:08] LABS: Glucose Point of Care 227 mg/dL (70-110)
[2021-12-29] MEDS: magnesium hydroxide 30 mL UDC PO (16:18)
[2021-12-29] MEDS: gabapentin 400 mg Capsule 1200 MG PO (20:30)
[2021-12-29] MEDS: acetaminophen 325 mg Tablet 650 MG PO (20:30)
[2021-12-29] MEDS: ropinirole 2 mg Tablet PO (20:31)
[2021-12-29 21:14] LABS: Glucose Point of Care 204 mg/dL (70-110)
--- NOTE | 2021-12-29 22:31 | ECG_ITS ---
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 Measurements Intervals [place] Rate: 72 P: 71 NH: 144 QRS: 64 QRSD: 97 T: 39 QT: 430 QTc: 471 Interpretive Statements SINUS RHYTHM WITH OCCASIONAL VENTRICULAR PREMATURE COMPLEXES Compared to ECG 12/29/2021 10:35:19 Ventricular premature complex(es) now present Sinus bradycardia no longer present Prolonged QT interval no longer present Electronically Signed On 12-31-2021 17:49:43 CDT by Troy Anderson M.D. [id number]
[2021-12-30 03:50] VITALS: BP 134/72; PULSE 80; RESP 18; TEMP 36.6; O2SAT 96
[2021-12-30 05:20] LABS: Alanine Aminotransferase 26 U/L (0-33); Albumin Level 3.4 g/dL (3.5-5.2); Alkaline Phosphatase 122 IU/L (35-105); Aspartate Amino Transferase 29 U/L (0-32); Blood Urea Nitrogen 12 mg/dL (6-20); Calcium 8.8 mg/dL (8.5-10.5); Carbon Dioxide 28 mmol/L (22-29); Chloride 101 mmol/L (98-107); Creatinine Clr Calc Pharmacy 150.5423; Globulin 2.9 g/dL (1.3-4.6); Glomerular Filtration Rate 104.6 mL/min (90-130); Glucose 179 mg/dL (65-115); Osmolality Calculated 294 mOsm/kg (285-295); Sodium 140 mmol/L (136-145); Total Bilirubin 0.2 mg/dL (0.15-1.2); Total Protein 6.3 g/dL (6.6-8.7)
[2021-12-30 05:27] LABS: Anion Gap 15.2 (5-19); Potassium 4.2 mmol/L (3.5-5.1)
[2021-12-30] MEDS: enoxaparin 120 mg/0.8 mL Syringe SUBCUT (05:44)
[2021-12-30] MEDS: gabapentin 400 mg Capsule 800 MG PO (05:45)
[2021-12-30 06:00] VITALS: PULSE 54
[2021-12-30 06:47] LABS: Glucose Point of Care 191 mg/dL (70-110)
[2021-12-30 08:00] VITALS: BP 121/76; PULSE 62; RESP 16; TEMP 36.7; O2SAT 99
[2021-12-30 08:09] VITALS: PULSE 87; RESP 16; O2SAT 99
[2021-12-30] MEDS: ferrous gluconate 324 mg Tablet PO (08:36)
[2021-12-30] MEDS: insulin lispro 100 unit/1 mL SUBCUT ×2 (08:36→12:45)
[2021-12-30] MEDS: atorvastatin 40 mg Tablet PO (08:37)
[2021-12-30] MEDS: sertraline 100 mg Tablet PO (08:37)
[2021-12-30] MEDS: famotidine 20 mg Tablet PO (08:37)
[2021-12-30] MEDS: oxybutynin 5 mg Tablet PO (08:37)
[2021-12-30] MEDS: insulin glargine 100 units/1 mL 50 UNIT SUBCUT (08:42)
--- NOTE | 2021-12-30 08:51 | PM.PN ---
Subjective Subjective: Patient is stable. Had brief episode of atrial fibrillation. Qtc is stable and this AM was 440 Vitals/I&O/Wt Last Vital Signs Temp 98.1 F 12/30/21 08:00 Pulse 87 12/30/21 08:09 Resp 16 12/30/21 08:09 BP 121/76 12/30/21 08:00 Pulse Ox 99 12/30/21 08:09 O2 Del Method 12/30/21 08:09 O2 Flow Rate 1.5 12/27/21 20:09 FiO2 21 12/30/21 08:09 12/29/21 12/30/21 12/30/21 22:59 06:59 14:59 Intake Total 240 / 1074 240 / 1314 Balance 240 / 1074 240 / 1314 Weight last 48 hrs Weight 281 lb Physical Exam Narrative: GENERAL: Patient is alert, awake and oriented x3. [] NECK: No jugular vein distension. [] HEENT: No cyanosis. No icterus. No pallor. [] HEART: Regular S1 and S2. No murmur, rub or gallop. [] LUNGS: Clear to auscultate bilaterally. [] ABDOMEN: Soft, nontender and nondistended. Positive bowel sounds. No guarding, rebound or tenderness. [] CENTRAL NERVOUS SYSTEM: Grossly nonfocal. [] EXTREMITIES: Lower extremities with 1+ edema bilaterally. Pulses palpable in the lower extremities, both dorsalis pedis and posterior tibial. [] Data : 12/28/21 05:04 12/30/21 03:50 A&P Assessment and plan (1) Paroxysmal atrial flutter: [id number]= 3/9, 1 for HTN, 1 for DM and 1 for female sex -cardizem gtt prn Patient has been started on Tikosyn 250 MCG twice a day. She is staying in sinus rhythm. QTc has stayed stable and is 440 this AM. Patient is stable to be discharged from cardiology standpoint. Continue eliquis Status: Acute (2) Paroxysmal A-fib: Status: Acute (3) Hypertension: Status: Acute (4) Morbid obesity with BMI of 40.0-44.9, adult: Status: Acute (5) Diabetes type 2, controlled: Status: Acute (6) Dyslipidemia due to type 2 diabetes mellitus: Status: Acute Plan YU on BiPaP COPD Chronic pain Tobacco abuse Hyperlipidemia Diabetic neuropathy Thank you for involving us with care of this patient. Please call with questions Attestations Medical Necessity Statement*: Care expected to cross 2 midnights. Coding Level of Care Code Acute Certified Medical Coding Specialist for [place] Diagnoses Paroxysmal atrial flutter I48.92 Paroxysmal A-fib I48.0 Hypertension I10 Morbid obesity with BMI of 40.0-44.9, adult E66.01; Z68.41 Diabetes type 2, controlled E11.9 Dyslipidemia due to type 2 diabetes mellitus E11.69; E78.5
[2021-12-30] MEDS: dilTIAZem 60 mg Tablet PO (10:18)
[2021-12-30] MEDS: CLONazepam 0.5 mg Tablet PO (10:18)
--- NOTE | 2021-12-30 10:18 | PM.DCS ---
Discharge Providers Date of Admission: 12/26/21 16:00 Date of Discharge: December 30, 2021 Attending Provider at Admission: Shannon Kirk MD Attending Provider at Discharge: Yaya Stewart MD Consults: Cardiology: Dr. Johnson Diagnoses at Discharge Discharge Diagnosis (1) Paroxysmal atrial flutter: Status: Acute (2) Paroxysmal A-fib: Status: Acute (3) Hypertension: Status: Acute (4) Morbid obesity with BMI of 40.0-44.9, adult: Status: Acute (5) Diabetes type 2, controlled: Status: Acute (6) Dyslipidemia due to type 2 diabetes mellitus: Status: Acute Reason for Visit Reason for Visit: CHEST PAIN Hospital Course Hospital Course Halina Escamilla is a 51 year old female with PMHx of paroxysmal atrial fibrillation since 06/2021 on sotalol with dose increase to 160 mg PO BID in 09/2021, dilatiazem and ASA, ILR implantation for A. fib monitoring in 09/2021, no prior cardioversion or other antiarrhythmic use. She had a prior LHC that did not show ant obstructive disease per patient. She also has HTN, type 2 DM, morbid obesity and YU on BiPaP and nocturnal oxygen supplementation. She presented for palpitations and fast HR noted on her apple watch. She was initially in sinus bradycardia with PAC's and PVC's with short paroxysms of atrial flutter on telemetry but later on went into atrial flutter with RVR with 2:1 conduction. Apparently, she missed her morning sotalol dose and has recently moved to the area in 11/2021. Trops x 2 negative. She complains of heart racing at the time of evaluation. Patient was admitted to hospital further evaluation and management of symptomatic paroxysmal atrial fibrillation. At first she was continued on her home dose of sotalol. But she continued to have occasional episodes of paroxysmal atrial fibrillation with rapid ventricular response so she was transitioned over to Tikosyn while her QTC is monitored. The episodes of paroxysmal A. fib has been reduced and are not symptomatic anymore. Her QTC has remained stable. Her home dose of Cardizem has been increased to 240 mg daily. Echocardiogram was done which showed normal EF of 60 to 65% without diastolic dysfunction and valvular abnormalities. She was started on anticoagulation. During hospitalization she was found to have uncontrolled type 2 diabetes mellitus for which her home dose of Lantus has been increased to 50 units twice daily. She has been discharged in hemodynamically stable condition with advised to follow-up with a primary care provider within next 1 week and Carmen Pringle from heart services in next 1 week. Physical Exam Narrative: EXAM NARRATIVE: General: No acute distress, HEENT: PERRLA, pupils bilaterally equal and reactive Chest: Bilateral normal vesicular breath sounds, equal good air entry bilaterally CVS: S1-S2 regular with episodes of missed beats, no murmurs, no tachycardia, no gallops, no rubs Abdomen: Soft, nontender, no organomegaly, bowel sounds present, morbidly obese Neuro: No focal deficits, no facial deformity, AO x3, power 5/5 in all limbs Discharge Data Studies Completed and Pending Completed Studies During Hospitalization Category Date Time Status XR chest 1V portable [id number] Stat Exams 12/25/21 13:16 Completed CV. echo wo/w contrast [id number] Routine Ultrasound 12/25/21 17:37 Completed Radiology Impressions Chest X-Ray 12/25/21 13:16 IMPRESSION: No acute findings. Cardiology: CONCLUSIONS ?1. Normal left ventricular size, systolic function and wall?thickness, with no regional wall motion abnormalities. Left?ventricular ejection fraction is estimated at 60-65 %. Normal?diastolic function. ?2. No significant valvular abnormality. ?3. Normal pulmonary artery pressure. ?4. No prior similar studies to compare. ?Rafaela Johnson MD ?(Electronically Signed) ?Final Date:? ? ? 26 December 2021 ? 21:41 Laboratory Results WBC 7.6 10^3/uL (4.0-10.0) 12/28/21 05:04 RBC 4.36 10^6/uL (4.1-5.3) 12/28/21 05:04 Hgb 13.0 g/dL (11.5-15.3) 12/28/21 05:04 Hct 40.4 % (37.0-47.0) 12/28/21 05:04 MCV 92.7 fl (81-99) 12/28/21 05:04 MCH 29.8 pg (28.0-34.0) 12/28/21 05:04 MCHC 32.2 g/dL (30.0-36.0) 12/28/21 05:04 RDW 15.9 % (12.1-15.1) H 12/28/21 05:04 Plt Count 191 10^3/cmm (130-400) 12/28/21 05:04 MPV 12.3 fL (7.4-10.4) H 12/28/21 05:04 Neut % (Auto) 45.7 % 12/28/21 05:04 Lymph % (Auto) 42.0 % 12/28/21 05:04 Sutter % (Auto) 7.6 % 12/28/21 05:04 Eos % (Auto) 3.5 % 12/28/21 05:04 Baso % (Auto) 0.7 % 12/28/21 05:04 Neut # (Auto) 3.48 10^3/uL (1.8-7.7) 12/28/21 05:04 Lymph # (Auto) 3.2 10^3/uL (0.8-4.8) 12/28/21 05:04 Sutter # (Auto) 0.6 10^3/uL (0.2-0.9) 12/28/21 05:04 Eos # (Auto) 0.3 10^3/uL (0.0-0.8) 12/28/21 05:04 Baso # (Auto) 0.1 10^3/uL (0.0-0.1) 12/28/21 05:04 Nucleated RBC % (auto) 0 % 12/28/21 05:04 Nucleated RBCs # 0.0 /100WBC 12/28/21 05:04 Sodium 140 mmol/L (136-145) 12/30/21 03:50 Potassium 4.2 mmol/L (3.5-5.1) 12/30/21 03:50 Chloride 101 mmol/L (98-107) 12/30/21 03:50 Carbon Dioxide 28 mmol/L (22-29) 12/30/21 03:50 Anion Gap 15.2 (5-19) 12/30/21 03:50 BUN 12 mg/dL (6-20) 12/30/21 03:50 Creatinine 0.6 mg/dL (0.5-0.9) 12/30/21 03:50 GFR Calculation 104.6 mL/min (90-130) 12/30/21 03:50 Glucose 179 mg/dL (65-115) H 12/30/21 03:50 POC Glucose 191 mg/dL (70-110) H 12/30/21 06:41 Estimat Average Glucose 252 12/26/21 02:50 Hemoglobin A1c 10.4 % (4.0-6.0) H 12/26/21 02:50 Calculated Osmolality 294 mOsm/kg (285-295) 12/30/21 03:50 Calcium 8.8 mg/dL (8.5-10.5) 12/30/21 03:50 Phosphorus 4.9 mg/dL (2.5-4.5) H 12/26/21 02:50 Magnesium 2.0 mg/dL (1.7-2.3) 12/30/21 03:50 Iron 68 ug/dL (37-145) 12/25/21 15:15 TIBC 356 mcg/dl 12/25/21 15:15 % Saturation 19.1 % (20-50) L 12/25/21 15:15 Unsat Iron Binding 288 ug/dL (112-347) 12/25/21 15:15 Total Bilirubin 0.2 mg/dL (0.15-1.2) 12/30/21 03:50 AST 29 U/L (0-32) 12/30/21 03:50 ALT 26 U/L (0-33) 12/30/21 03:50 Alkaline Phosphatase 122 IU/L (35-105) H 12/30/21 03:50 Troponin T Baseline 9 ng/L (0-10) 12/25/21 13:25 Troponin T 120 Minute 9.21 ng/L (0-10) 12/25/21 15:15 Delta Troponin T 0.21 ABS# (0-10) 12/25/21 15:15 Troponin T Hi Sens 6Hr 11.31 ng/L (0-10) H 12/25/21 21:27 Troponin T Hi Sens 6Hr Delta 2.31 ng/L (0-12) 12/25/21 21:27 NT-Pro-B Natriuret Pep 125 pg/mL (0-125) 12/29/21 04:45 Total Protein 6.3 g/dL (6.6-8.7) L 12/30/21 03:50 Albumin 3.4 g/dL (3.5-5.2) L 12/30/21 03:50 Globulin 2.9 g/dL (1.3-4.6) 12/30/21 03:50 Triglycerides 221 mg/dL (0-150) H 12/26/21 02:50 Cholesterol 137 mg/dL (0-200) 12/26/21 02:50 LDL Cholesterol, Calc 65 mg/dL (50-129) 12/26/21 02:50 Total VLDL Cholesterol 44 mg/dL (0-30) H 12/26/21 02:50 HDL Cholesterol 28 mg/dL (60-100) L 12/26/21 02:50 Cholesterol/HDL Ratio 4.89 mg/dL (0.0-4.40) H 12/26/21 02:50 Vitamin B12 669 pg/mL (232-1245) 12/25/21 15:15 Folate > 20.0 ng/mL (4.8-37.3) 12/25/21 15:15 TSH 1.82 uIU/mL (0.27-4.20) 12/25/21 13:25 Free T4 1.05 ng/dL (0.82-1.77) 12/25/21 13:25 Urine Color Yellow (Yellow) 12/25/21 17:30 Urine Appearance Clear (CLEAR) 12/25/21 17:30 Urine pH 5 (5-7) 12/25/21 17:30 Ur Specific [place] 1.005 (1.005-1.030) 12/25/21 17:30 Urine Protein Neg (Negative) 12/25/21 17:30 Urine Glucose (UA) 4+ (Normal) H 12/25/21 17:30 Urine Ketones Negative (Negative) 12/25/21 17:30 Urine Blood Neg (Negative) 12/25/21 17:30 Urine Nitrate Negative (Negative) 12/25/21 17:30 Urine Bilirubin Neg (Negative) 12/25/21 17:30 Urine Urobilinogen Norm mg/dL (Negative) 12/25/21 17:30 Ur Leukocyte Esterase Negative (Negative) 12/25/21 17:30 Urine Opiates Screen Negative ng/mL (Negative) 12/25/21 17:30 Ur Barbiturates Screen Negative ng/mL (Negative) 12/25/21 17:30 Ur Phencyclidine Scrn Negative ng/mL (Negative) 12/25/21 17:30 Ur Amphetamines Screen Negative ng/mL (Negative) 12/25/21 17:30 U Benzodiazepines Scrn Negative ng/mL (Negative) 12/25/21 17:30 Urine Cocaine Screen Negative ng/mL (Negative) 12/25/21 17:30 U Marijuana (THC) Screen Negative ng/mL (Negative) 12/25/21 17:30 Vitals Last Vital Signs Temp 98.1 F 12/30/21 08:00 Pulse 87 12/30/21 08:09 Resp 16 12/30/21 08:09 BP 121/76 12/30/21 08:00 Pulse Ox 99 12/30/21 08:09 O2 Del Method 12/30/21 08:09 O2 Flow Rate 1.5 12/27/21 20:09 FiO2 21 12/30/21 08:09 Discharge Plan Discharge Patient Disposition: Home Condition: Stable Prescriptions: New ferrous gluconate 324 mg (37.5 mg iron) Tablet 324 mg PO BIDWM Qty: 60 0RF aspirin [Adult Aspirin Regimen] 81 mg tablet,delayed release (DR/EC) 81 mg PO DAILY Qty: 30 0RF diltiazem HCl [Cardizem CD] 240 mg capsule,extended release 24hr 240 mg PO Q24H Qty: 60 0RF Tikosyn 250 mcg PO 0900,2100 Qty: 60 2RF Eliquis 5 mg tablet 5 mg PO BID Qty: 60 0RF Continued sertraline 100 mg tablet 100 mg PO DAILY furosemide 20 mg tablet 20 mg PO DAILY atorvastatin 40 mg tablet 40 mg PO DAILY Farxiga 10 mg tablet 10 mg PO DAILY potassium chloride 10 mEq tablet extended release 10 meq PO DAILY Kerendia 10 mg tablet 10 mg PO DAILY thiamine HCl (vitamin B1) 500 mg tablet 500 mg PO DAILY vitamin B complex [B Complex-Vitamin B12] Tablet 1 tab PO DAILY oxybutynin chloride 5 mg tablet 5 mg PO BID Janumet XR 50-1,000 mg tablet, ER multiphase 24 hr 1 tab PO BID gabapentin 800 mg tablet 800 mg PO QAM gabapentin 400 mg tablet 1,200 mg PO BEDTIME Rx Instructions: 400 MG TAKEN WITH 800 MG ORALLY at bedtime per patient ropinirole 2 mg tablet 2 mg PO BEDTIME baclofen 10 mg tablet 10 mg PO TID PRN (Reason: muscle pain) Qty: 30 0RF Flonase 50 mcg/actuation [place],Suspension 2 spray INTRANASAL DAILY PRN (Reason: Nasal Congestion) Rx Instructions: administer into each nostril Changed insulin glargine [Lantus Solostar U-100 Insulin] 100 unit/mL (3 mL) insulin pen 50 unit SUBCUT BID Qty: 15 0RF Discontinued aspirin 325 mg tablet 325 mg PO DAILY lisinopril-hydrochlorothiazide 20-25 mg tablet 1 tab PO DAILY sotalol 160 mg tablet 160 mg PO BID diltiazem HCl 180 mg tablet extended release 24 hr 180 mg PO QPM Discharge Orders: Discharge Order (Routine); Ordered 12/30/21 Ordered By: Yaya Stewart Referrals: Carmen Pringle FNP [Nurse Practitioner] - 4-7 days Rafaela Johnson MD [Physician] - 1 month Discharge Diet: Regular, Cardiac and Diabetic Discharge Activity: Resume usual activity and Increase activity as tolerated Patient Instructions: Opioid Safety Activity Restrictions/Additional Instructions: Dose of aspirin has been changed to 81 mg daily. Dose of Cardizem has been increased to 40 mg daily. Do not take lisinopril?hydrochlorothiazide anymore. Do not take sotalol anymore. You are on Tikosyn 250 mg twice daily. Please follow-up with cardiology services within next 1 week for repeat EKG. Dose of Lantus has been changed to 50 units morning and evening. Please follow-up with your primary care provider within next 1 week. Discharge Attestations Time Spent in Discharge Care*: greater than 30 min Specific Discharge Activities: educating patient, discussing with pcp/other providers, discussing with rehabilitation caseworker/social workers/dc planners, documenting/other paperwork and evaluating patient/reviewing data Status at Discharge: Cognitive status at discharge: cognitively intact, Behavioral status at discharge: cooperative, Functional status at discharge: independent ambulation, Overall status at discharge: patient is back to baseline Quality Metrics Clinical Quality Measures [ No reported AMI, CVA or VTE this stay] Coding Level of Care Code Acute Chg FW DC note Diagnoses Paroxysmal atrial flutter I48.92 Paroxysmal A-fib I48.0 Hypertension I10 Morbid obesity with BMI of 40.0-44.9, adult E66.01; Z68.41 Diabetes type 2, controlled E11.9 Dyslipidemia due to type 2 diabetes mellitus E11.69; E78.5
--- NOTE | 2021-12-30 10:33 | ECG_ITS ---
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 Measurements Intervals [place] Rate: 60 P: 67 MI: 167 QRS: 42 QRSD: 101 T: 34 QT: 441 QTc: 443 Interpretive Statements SINUS RHYTHM WITH OCCASIONAL SUPRAVENTRICULAR PREMATURE COMPLEXES Compared to ECG 12/29/2021 22:31:43 Ventricular premature complex(es) no longer present Electronically Signed On 12-31-2021 17:47:28 CDT by Troy Anderson M.D. [id number]
[2021-12-30 11:59] LABS: Glucose Point of Care 186 mg/dL (70-110)
== END 2021-12-30 13:00 | disposition home or self-care (01) | DRG 309 ==
LOC: ER 17:12 → MEDSURG 17:21
PROVIDERS: Internal Medicine Cardiovascular Disease; Admitting Provider Student in an Organized Health Care Education/Training Program; Emergency Provider Emergency Medicine; Visit Provider Student in an Organized Health Care Education/Training Program
DX: I48.0 Paroxysmal atrial fibrillation (principal); Z68.41 Body mass index [BMI] 40.0-44.9, adult; I10 Essential (primary) hypertension; F41.9 Anxiety disorder, unspecified; G89.29 Other chronic pain; E11.40 Type 2 diabetes mellitus with diabetic neuropathy, unspecified; E11.69 Type 2 diabetes mellitus with other specified complication; E78.5 Hyperlipidemia, unspecified; E66.01 Morbid (severe) obesity due to excess calories; G25.81 Restless legs syndrome; F17.210 Nicotine dependence, cigarettes, uncomplicated; G47.33 Obstructive sleep apnea (adult) (pediatric); Z99.89 Dependence on other enabling machines and devices; J44.9 Chronic obstructive pulmonary disease, unspecified; Z79.84 Long term (current) use of oral hypoglycemic drugs; Z59.01 Sheltered homelessness
CPT/HCPCS: 36415; 36416; 71045; 80048; 80053; 80061; 80306; 81003; 82607; 82746; 82962; 83036; 83540; 83550; 83735; 83880; 84100; 84439; 84443; 84484; 85025; 93005; 93306; 94660; 94664; 96372; C8929; G0378; J1650; J1815; J1940; J2405; J3490; Q9956

== ENCOUNTER → 2022-01-09 09:01 | Outpatient (BNVA) | payer MEDICARE, MEDICAID, SELFPAY | PROVIDERS: PCP Family Medicine Adult Medicine; Visit Provider Nurse Practitioner Family | DX: I48.92 Unspecified atrial flutter (principal); I48.0 Paroxysmal atrial fibrillation | CPT/HCPCS: 93005; 99213 ==

== ENCOUNTER → 2022-01-16 09:38 | Outpatient (BNVA) | payer MEDICARE, MEDICAID, SELFPAY | PROVIDERS: PCP Family Medicine Adult Medicine; Visit Provider Family Medicine Adult Medicine | DX: I10 Essential (primary) hypertension (principal); E11.9 Type 2 diabetes mellitus without complications; Z98.890 Other specified postprocedural states; Z98.891 History of uterine scar from previous surgery; Z98.51 Tubal ligation status; R21 Rash and other nonspecific skin eruption; I48.92 Unspecified atrial flutter | CPT/HCPCS: 80053; 83036 ==

== ENCOUNTER → 2022-02-07 14:38 | Outpatient (BNVA) | payer MEDICARE, MEDICAID, SELFPAY | PROVIDERS: PCP Family Medicine Adult Medicine; Visit Provider Internal Medicine Cardiovascular Disease | DX: R06.02 Shortness of breath (principal); I48.92 Unspecified atrial flutter; I48.0 Paroxysmal atrial fibrillation; I10 Essential (primary) hypertension; E11.9 Type 2 diabetes mellitus without complications; E66.01 Morbid (severe) obesity due to excess calories; Z68.41 Body mass index [BMI] 40.0-44.9, adult; G47.33 Obstructive sleep apnea (adult) (pediatric); Z79.4 Long term (current) use of insulin; F17.210 Nicotine dependence, cigarettes, uncomplicated | CPT/HCPCS: 99214 ==

== ENCOUNTER → 2022-03-01 10:12 | Outpatient (BNVA) | payer MEDICARE, MEDICAID, SELFPAY | PROVIDERS: PCP Family Medicine Adult Medicine; Visit Provider Internal Medicine Cardiovascular Disease | DX: Z45.02 Encounter for adjustment and management of automatic implantable cardiac defibrillator (principal) | CPT/HCPCS: 93291 ==

== ENCOUNTER → 2022-08-08 15:11 | Outpatient (BNVA) | payer MEDICARE, MEDICAID, SELFPAY | PROVIDERS: PCP Family Medicine; Visit Provider Nurse Practitioner Family | DX: R06.02 Shortness of breath (principal); E11.9 Type 2 diabetes mellitus without complications; Z79.4 Long term (current) use of insulin; F17.210 Nicotine dependence, cigarettes, uncomplicated; Z79.01 Long term (current) use of anticoagulants; Z79.82 Long term (current) use of aspirin | CPT/HCPCS: 99214 ==

== ENCOUNTER 2022-09-09 07:09 | Outpatient (CLI) | payer MEDICARE, MEDICAID, SELFPAY ==
[2022-09-09 07:33] VITALS: BMI 45.4
--- NOTE | 2022-09-09 07:36 | ECG_ITS ---
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 Interpretive Statements NAME OF STUDY: LEXISCAN SESTAMIBI STRESS TEST INDICATION: Chest Pain RESULTS TO [facility] PROCEDURE: At the baseline, the EKG revealed normal sinus rhythm with a possible left atrial enlargement. Nonspecific IVCD. Occasional PVCs.. The baseline heart was 71 bpm with a blood pressue of 140/85 mm of Hg Lexiscan was infused over a period of 20 seconds. A total of 0.4 milligrams of Lexiscan was infused. The stress phase was continued for a total of 5 minutes. Heart rate at the end of the stress phase was 75 bpm with a blood pressure 113/75 mm of Hg. The EKG at the peak infusion revealed no significant changes. Sestamibi was injected 20 seconds after the Lexiscan infusion. Heart rate at the end of the recovery phase was 76 bpm with a blood pressure of 113/74 mm of Hg. CONCLUSION: 1. No significant EKG changes with the LexiScan infusion 2. No LexiScan induced chest pain or cardiac arrhythmia 3. Normal blood pressure and heart rate response 4. Sestamibi/sestamibi perfusion scan pending; see separate report. Electronically Signed On 09-14-2022 19:40:25 CDT by Mary Emmanuel M.D. [id number]
--- NOTE | 2022-09-09 07:37 | NMCV_ITS ---
NM lauren perf SPECT r/s* [id number] Halina Escamilla Age: 51 Gender: F : 1970 Exam Date: 09/09/2022 08:30 Ordering Phys: Rafaela Johnson MD ([email or web address]) Technologist: CANDACE Valente Exam Location: [facility] Indications: CHEST PAIN STRESS TEST Please see separate stress test report in [facility] for full findings IMAGE PROTOCOL Rest/Stress 1 Lexiscan Day Radiopharmaceutical Dose (mCi) Administration Site Administered by Rest: Tc-99m 10.5 IV CANDACE Conte Sestamibi Stress:Tc-99m 32.7 IV CANDACE Conte Sestamibi Rest: 09-Sep-2022 60 Discovery 630 Stress: 09-Sep-2022 30 Discovery 630 0.4mg Lexiscan. Images obtained in supine and prone position. SPECT RESULTS Technical Quality: Good Raw Data Analysis: Breast attenuation Image Corrections: No attenuation or motion correction applied Summed Stress Score: 2 Summed Rest Score: 1 Summed Difference Score: 1 PERFUSION FINDINGS A small area of moderately decreased tracer uptake was noted in the mid inferolateral region, with the supine imaging. Some reversibility was noted in this region at rest. With the prone imaging, there was fairly uniform myocardial tracer uptake. FUNCTIONAL RESULTS (calculated via Gated SPECT) Stress Image LV EF (%): 62 Stress EDV (mL):125 TID: 1.04 Stress ESV (mL):47 FUNCTIONAL FINDINGS: Segmental wall motion analysis revealed no gross wall motion abnormalities. IMPRESSIONS 1. Myocardial perfusion imaging revealing a small area of t reversibility in the mid inferolateral region, may suggest ischemia in the distribution of the left circumflex artery. However because of the inconsistency, the reliability is questionable. 2. Normal LV ejection fraction of 62%. 3. LV wall motion analysis revealing no gross wall motion abnormalities. 4. Normal LV volume No similar previous studies are available for comparison Dr Mary Emmanuel MD FAC (Electronically Signed) Final Date: 09 September 2022 16:36 S
[2022-09-09] MEDS: regadenoson 0.4 Mg/5 ml Syringe IVP (09:12)
[2022-09-09 09:22] VITALS: BP 113/74; PULSE 72
== END 2022-09-09 07:10 | disposition home or self-care (01) ==
LOC: CDL 07:10
PROVIDERS: PCP Family Medicine; Visit Provider Internal Medicine Cardiovascular Disease
DX: R07.9 Chest pain, unspecified (principal)
CPT/HCPCS: 36415; 78452; 93017; 96374; A9500; J2785

== ENCOUNTER → 2023-03-05 15:30 | Outpatient (BNVA) | payer MEDICARE, MEDICAID, SELFPAY | PROVIDERS: PCP Family Medicine; Visit Provider Internal Medicine Cardiovascular Disease | DX: I48.0 Paroxysmal atrial fibrillation (principal); I48.92 Unspecified atrial flutter; F17.210 Nicotine dependence, cigarettes, uncomplicated; Z79.01 Long term (current) use of anticoagulants | CPT/HCPCS: 99214 ==

== ENCOUNTER → 2023-03-20 13:53 | Outpatient (BNVA) | payer MEDICARE, MEDICAID, SELFPAY | PROVIDERS: PCP Family Medicine; Visit Provider Physician Assistant | DX: M75.41 Impingement syndrome of right shoulder; S46.001A Unspecified injury of muscle(s) and tendon(s) of the rotator cuff of right shoulder, initial encounter; W19.XXXA Unspecified fall, initial encounter | CPT/HCPCS: 73030; 99203 ==

== ENCOUNTER → 2023-03-28 10:36 | Outpatient (BNVA) | payer MEDICARE, MEDICAID, SELFPAY | PROVIDERS: PCP Family Medicine; Visit Provider Internal Medicine Cardiovascular Disease | DX: Z45.010 Encounter for checking and testing of cardiac pacemaker pulse generator [battery] (principal) | CPT/HCPCS: 93296 ==

== ENCOUNTER 2023-05-15 15:16 | Outpatient (CLI) | payer MEDICARE, MEDICAID, SELFPAY ==
--- NOTE | 2023-05-15 16:00 | MR_ITS ---
WS: [id number] MRI RIGHT SHOULDER NONCONTRAST TECHNIQUE: Sagittal T2, coronal T1, T2 and proton density imaging. Axial gradient PDE imaging. CLINICAL INFORMATION: pain right shoulder COMPARISON: None. FINDINGS: Moderate degenerative arthritis AC joint with associated fluid. Small amount of subacromial fluid. Mi ld narrowing of the subacromial space. Hypertrophic spurring at the humeral head. Evidence of prior r otator cuff repairs. Chronic thinning of the distal supraspinatus which appears intact. Normal infras pinatus and teres minor. Moderate degenerative narrowing at the glenohumeral articulation. Chronic th inning of the subscapularis which appears intact. Biceps tendon not well visualized in the bicipital groove due to susceptibility artifact from prior surgeries. Degenerative fraying of the glenoid labru m. IMPRESSION: 1. Moderate degenerative arthritis AC joint with fluid and edema. 2. Prior rotator cuff repair with chronic thinning of the distal supraspinatus which appears intact. 3. Chronic thinning of the subscapularis which appears intact. No acute appearing rotator cuff tears . 4. Biceps tendon not well visualized in the bicipital groove due to extensive susceptibility artifac t from prior surgeries. 5. Moderate degenerative narrowing glenohumeral articulation. 6. Hypertrophic spurring involving the lateral humeral head. 7. No other acute findings.
== END 2023-05-15 15:17 | disposition home or self-care (01) ==
LOC: RAD 15:17
PROVIDERS: PCP Family Medicine; Visit Provider Physician Assistant
DX: M75.41 Impingement syndrome of right shoulder (principal); M19.011 Primary osteoarthritis, right shoulder; Z98.890 Other specified postprocedural states
CPT/HCPCS: 73221

== ENCOUNTER → 2023-07-16 09:19 | Outpatient (BNVA) | payer MEDICARE, MEDICAID, SELFPAY | PROVIDERS: PCP Family Medicine; Visit Provider Internal Medicine Cardiovascular Disease | DX: Z45.02 Encounter for adjustment and management of automatic implantable cardiac defibrillator (principal) | CPT/HCPCS: 93296 ==

== ENCOUNTER → 2023-08-01 08:55 | Outpatient (BNVA) | payer MEDICARE, MEDICAID, SELFPAY | PROVIDERS: PCP Family Medicine; Visit Provider Physician Assistant | DX: M75.41 Impingement syndrome of right shoulder | CPT/HCPCS: 20610; 99213; J3301 ==

== ENCOUNTER → 2023-08-29 09:49 | Outpatient (BNVA) | payer MEDICARE, MEDICAID, SELFPAY | PROVIDERS: PCP Family Medicine; Visit Provider Internal Medicine Cardiovascular Disease | DX: Z53.9 Procedure and treatment not carried out, unspecified reason (principal); Z45.018 Encounter for adjustment and management of other part of cardiac pacemaker | CPT/HCPCS: 93291 ==

== ENCOUNTER → 2023-09-04 15:29 | Outpatient (BNVA) | payer MEDICARE, MEDICAID, SELFPAY | PROVIDERS: PCP Family Medicine; Visit Provider Internal Medicine Cardiovascular Disease | DX: I48.0 Paroxysmal atrial fibrillation (principal); I10 Essential (primary) hypertension; E11.8 Type 2 diabetes mellitus with unspecified complications; Z79.4 Long term (current) use of insulin; G47.33 Obstructive sleep apnea (adult) (pediatric); Z95.818 Presence of other cardiac implants and grafts; Z79.01 Long term (current) use of anticoagulants; F17.290 Nicotine dependence, other tobacco product, uncomplicated | CPT/HCPCS: 99215 ==

== ENCOUNTER → 2024-01-27 14:16 | Outpatient (BNVA) | payer MEDICARE, MEDICAID, SELFPAY | PROVIDERS: PCP Family Medicine; Visit Provider Physician Assistant | DX: M75.41 Impingement syndrome of right shoulder | CPT/HCPCS: 20610; 99213; J3301 ==

== ENCOUNTER → 2024-02-03 14:28 | Outpatient (BNVA) | payer MEDICARE, MEDICAID, SELFPAY | PROVIDERS: PCP Family Medicine; Visit Provider Orthopaedic Surgery | DX: M54.50 Low back pain, unspecified (principal) | CPT/HCPCS: 72110; 99204 ==

== ENCOUNTER → 2024-02-19 15:30 | Outpatient (BNVA) | payer MEDICARE, MEDICAID, SELFPAY | PROVIDERS: PCP Family Medicine; Visit Provider Orthopaedic Surgery | DX: M54.50 Low back pain, unspecified (principal); G89.29 Other chronic pain | CPT/HCPCS: 99214 ==

== ENCOUNTER → 2024-03-01 11:10 | Outpatient (BNVA) | payer MEDICARE, MEDICAID, SELFPAY | PROVIDERS: PCP Family Medicine; Visit Provider Nurse Practitioner Family | DX: I48.0 Paroxysmal atrial fibrillation (principal); R94.31 Abnormal electrocardiogram [ECG] [EKG] | CPT/HCPCS: 93005; 99214 ==

== ENCOUNTER → 2024-05-27 13:44 | Outpatient (BNVA) | payer MEDICARE, MEDICAID, SELFPAY | PROVIDERS: PCP Family Medicine; Visit Provider Orthopaedic Surgery | DX: M54.50 Low back pain, unspecified (principal); G89.29 Other chronic pain; E11.8 Type 2 diabetes mellitus with unspecified complications; Z79.4 Long term (current) use of insulin; Z09 Encounter for follow-up examination after completed treatment for conditions other than malignant neoplasm | CPT/HCPCS: 99214 ==

== ENCOUNTER 2024-07-08 10:48 | Outpatient (CLI) | payer MEDICARE, MEDICAID, SELFPAY ==
[2024-07-08 11:18] LABS: Basophils % 0.3 %; Eosinophils # 0.2 10^3/uL (0.0-0.8); Eosinophils % 1.7 %; Hematocrit 40.9 % (36-47); Lymphocytes # 3.1 10^3/uL (0.8-4.8); Lymphocytes % 32.8 %; Mean Corpuscular HGB Conc 31.8 g/dL (30-55); Mean Corpuscular Hemoglobin 27.5 pg (27-33); Mean Corpuscular Volume 86.7 fl (85-98); Mean Platelet Volume 11.1 fL (7.4-10.4); Monocytes # 0.7 10^3/uL (0.2-0.9); Monocytes % 7.2 %; Neutrophils # 5.35 10^3/uL (1.8-7.7); Neutrophils % 57.4 %; Nucleated Red Blood Cells % 0 %; Platelet Count 277 10^3/cmm (157-399); Red Blood Count 4.72 10^6/uL (3.85-5.65); Red Cell Distribution Width 13.8 % (12.1-15.1); White Blood Count 9.33 10^3/uL (3.29-11.43)
[2024-07-08 11:23] LABS: Bilirubin Urine Negative (Negative); Blood Urine Negative (Negative); Glucose Urine UA 3+ (Normal); Ketones Urine Negative (Negative); Leukocyte Esterase Urine Negative (Negative); Nitrate Urine Negative (Negative); Protein Urine Trace (Negative); Urine Appearance Cloudy (CLEAR); Urine Color Yellow (Yellow)
[2024-07-08 11:39] LABS: Alanine Aminotransferase 12 U/L (0-33); Albumin Level 3.7 g/dL (3.5-5.2); Alkaline Phosphatase 89 U/L (35-105); Anion Gap 20.1 (5-19); Aspartate Amino Transferase 15 U/L (0-32); Blood Urea Nitrogen 16 mg/dL (6-20); Calcium 9.2 mg/dL (8.5-10.5); Carbon Dioxide 24 mmol/L (22-29); Chloride 100 mmol/L (98-107); Globulin 3.8 g/dL (1.3-4.6); Glomerular Filtration Rate 103.8 mL/min (90-130); Glucose 119 mg/dL (65-115); Osmolality Calculated 292 mOsm/kg (285-295); Potassium 4.1 mmol/L (3.5-5.1); Sodium 140 mmol/L (136-145); Total Bilirubin 0.3 mg/dL (0.15-1.2); Total Protein 7.5 g/dL (6.6-8.7)
[2024-07-08 11:50] LABS: Estmated Average Glucose 194; Hemoglobin A1C 8.4 % (4.0-6.0)
[2024-07-08 12:35] LABS: Specific Gravity, Urine 1.039 (1.005-1.030)
[2024-07-08 12:36] LABS: UA Manual Slide Review YES; UA Slide Review UA Slide Review Perf
[2024-07-08 12:37] LABS: Add Urine Microscopic? YES; Bacteria Urine 2+ /hpf; Hyaline Casts Urine 0-4 /lpf; Mucus Urine TRACE /hpf
[2024-07-08 12:38] LABS: Add Urine Culture? No
== END 2024-07-08 10:49 | disposition home or self-care (01) ==
LOC: LAB 10:50
PROVIDERS: PCP Family Medicine; Visit Provider Orthopaedic Surgery
DX: M54.50 Low back pain, unspecified (principal); G89.29 Other chronic pain; Z79.4 Long term (current) use of insulin; E11.8 Type 2 diabetes mellitus with unspecified complications
CPT/HCPCS: 36415; 80053; 81001; 83036; 85025

== ENCOUNTER → 2024-07-12 11:28 | Outpatient (BNVA) | payer MEDICARE, MEDICAID, SELFPAY | PROVIDERS: PCP Family Medicine; Visit Provider Family Medicine | DX: Z01.818 Encounter for other preprocedural examination (principal) | CPT/HCPCS: 81003 ==

== ENCOUNTER 2024-07-16 08:01 | Day surgery (SDC) | payer MEDICARE, MEDICAID, SELFPAY ==
[2024-07-16] VITALS (11 sets, daily range): BP systolic 91–144; BP diastolic 44–78; PULSE 46–54; RESP 10–20; TEMP 36.1–36.2; O2SAT 92–100; BMI 43.2
--- NOTE | 2024-07-16 08:33 | ECG_ITS ---
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 Measurements Intervals [place] Rate: 38 P: 64 TX: 161 QRS: 45 QRSD: 100 T: 47 QT: 538 QTc: 431 Interpretive Statements SINUS BRADYCARDIA Compared to ECG 03/01/2024 11:19:09 Sinus rhythm no longer present ST (T wave) deviation no longer present Electronically Signed On 07-17-2024 08:18:01 EDUCATIONAL TECHNOLOGY SPECIALIST by Troy Anderson M.D. [email or web address]
[2024-07-16] MEDS: sodium chloride 0.9% 1,000 ML 30 ML IV (08:46)
[2024-07-16 08:58] LABS: Glucose Point of Care 171 mg/dL (70-110)
--- NOTE | 2024-07-16 09:00 | ANES.PREANE2 ---
Pre-Anesthetic Assessment Height/Weight: Height 5 ft 7 in Weight 276 lb O2 Del Method Room Air 07/16/24 08:35 Preop Diagnosis: Lumbar stenosis with neurogenic claudication Operation Date: 07/16/24 09:35 Proposed Procedures p Lumbar Spine Decompression Lumbar Decompression(Not Applicable) - Kannan Mitchell, DO Was Beta Yonis taken within 24 hours: N/A Was Clonidine taken within 24 hours: N/A Last intake: Intake Last Liquid Date 07/15/24 Last Liquid Time 23:59 Last Solid Date 07/15/24 Last Solid Time 19:00 Social Tobacco and No alcohol Exam alert, oriented x 3 and clear to auscultation bilaterally Sinus bradycardia Airway Submandibular: within normal limits Cervical ROM: within normal limits Mallampati: Class II Comments: Comments: Edentulous Anesthetic Plan ASA status: 3 Anesthesia: General Other: No prior issues with anesthesia NPO since yesterday evening History of A-fib. On chronic Eliquis. Last taken 07/08/2024 Insulin-dependent DM. Patient also takes sitagliptin p.o. last taken 07/13/2024 Preop BS 170 Hypertension on diltiazem Current smoker YU, wears CPAP nightly METs greater than 4 Patient was bradycardic on monitor in preop. EKG showing sinus bradycardia, HR 38. Patient currently asymptomatic. States she goes in and out of A-fib Plan for GETA Medications/Allergies Home Medications ?Medication ?Instructions ?Recorded ?Confirmed ?Last Taken ?Type oxybutynin chloride 5 mg tablet 5 mg PO BID 12/07/21 07/15/24 07/15/24 History ropinirole 2 mg tablet 2 mg PO BEDTIME 12/07/21 07/16/24 07/15/24 History sitagliptin phos 50 mg-metformin 1 tab PO BID 12/07/21 07/15/24 07/13/24 History ER 1,000 mg tablet,extend rel 24h mp (Janumet XR) atorvastatin 40 mg tablet 40 mg PO DAILY #30 tabs 01/16/22 07/15/24 07/15/24 Rx dapagliflozin propanediol 10 mg 10 mg PO DAILY #30 tabs 01/16/22 07/15/24 07/15/24 Rx tablet (Farxiga) finerenone 10 mg tablet (Kerendia) 10 mg PO DAILY #30 tabs 08/07/15/24 07/15/24 Rx potassium chloride 10 mEq 10 meq PO BID #180 tabs 02/07/22 07/15/24 07/15/24 Rx tablet,extended release apixaban 5 mg tablet (Eliquis) 5 mg PO BID #180 tabs 02/20/23 07/15/24 07/12/24 Rx tirzepatide 5 mg/0.5 mL 7.5 mg SUBCUT DIRECTED 09/04/23 07/16/24 07/06/24 History subcutaneous pen injector (Lachoro) diltiazem HCl 240 mg See Rx Instructions .Route 09/25/23 07/15/24 07/15/24 Rx capsule,extended release 24 hr .COMPLEX #90 caps dofetilide 500 mcg capsule See Rx Instructions .Route 04/05/24 07/15/24 07/15/24 Rx .COMPLEX #180 caps furosemide 40 mg tablet 40 mg PO BID PRN Edema 07/12/24 07/15/24 07/13/24 History insulin glargine 100 unit/mL (3 20 unit SUBCUT QDAY diabetes 07/12/24 07/15/24 07/15/24 History mL) subcutaneous pen (Lantus Solostar U-100 Insulin) pregabalin 150 mg capsule 150 mg PO BID 07/12/24 07/15/24 07/15/24 History Allergies Allergy/AdvReac Type Severity Reaction Status Date / Time povidone-iodine (From Allergy rash Verified 07/15/24 12:45 Betadine) clindamycin AdvReac Mild ADR-Diarrhe Verified 07/15/24 12:45 a cyclobenzaprine (From AdvReac Mild ADR-Confusi Verified 07/15/24 12:45 Flexeril) on Current Medications Generic Name Dose Route Start Last Admin Trade Name Freq PRN Reason Stop Dose Admin Sodium Chloride 1,000 mls @ 30 mls/hr 07/16/24 08:15 07/16/24 08:46 Sodium Chloride 0.9% IV 07/17/24 08:14 30 mls/hr .Q24H RAEGAN Administration PFSH Anesthesia Medical History Diabetic eye exam 12/17/2021 No Diabetic Retinopathy, other vascular changes Mammogram normal 10/12/2019 Smoker unmotivated to quit Rash and nonspecific skin eruption Obstructive sleep apnea Chest pain Urinary incontinence Dyslipidemia due to type 2 diabetes mellitus Restless leg syndrome Chronic pain disorder Diabetes type 2, controlled onset age 28-29 Hypertension Morbid obesity with BMI of 40.0-44.9, adult Fall Surgical History Hx of colonoscopy 05/19/2018 History of tonsillectomy and adenoidectomy History of endometrial ablation History of x2 History of bilateral tubal ligation History of rotator cuff surgery x3 on right shoulder Family History Grandmother Hypertension Mother Hypertension Cancer blood cancer Diabetes Hyperlipidemia Family/Other Cancer Maternal aunt--blood cancer Brother Diabetes Hyperlipidemia Stroke Denies family history of CAD (coronary artery disease) Clotting disorder Dementia Chronic kidney disease (CKD) Anesthesia complication Bleeding disorder Lung disease Social History Smoking and tobacco/nicotine status: current every day tobacco/nicotine user e-cigarettes Quit status (tobacco/nicotine): has tried quititng Alcohol intake: never Substance/Drug Use: never Caregiver/support person: Yes Lives independently: No (currently at homeless alf but will be moving soon) Household members: none Housing: Apartment Marital status: Number of children: 2 Highest education level completed: Some College, No Degree service: No Current occupational status: disabled Pets and animals: No Do you think of yourself as: Decline to Answer Current gender identity: Female Delicia/Quaker: Christianity Special delicia needs: No Data Anesthesia Cardiac Studies: Echocardiogram 12/25/21 Sestamibi Stress Test (Cardiology) 09/09/22
--- NOTE | 2024-07-16 09:32 | W.PM.OPSUD ---
Surgery/Procedure H&P Update DATE OF PROCEDURE: July 16, 2024 DATE H&P PERFORMED: 07/12/24 H&P UPDATE INFORMATION: I have reviewed H&P completed within last 30 days, I have examined patient prior to procedure and No changes to prior documentation PREOP DIAGNOSIS: Lumbar stenosis with neurogenic claudication PLANNED PROCEDURE: Operation Date: 07/16/24 09:35 Proposed Procedures p Lumbar Spine Decompression Lumbar Decompression(Not Applicable) - Kannan Mitchell DO
[2024-07-16] MEDS: ceFAZolin 2,000 mg SDV 2000 MG IVP (09:38)
[2024-07-16] MEDS: lidocaine-epi 1% PF 1:200,000 30 mL SDV INJECTION (10:08)
--- NOTE | 2024-07-16 11:22 | PM.OP ---
Operative Report Date of procedure: July 16, 2024 Pre-op diagnosis: Lumbar stenosis with neurogenic claudication Post-op diagnosis: same Procedure done: 1. L4-5 laminectomy with partial facetectomy 2. L5-S1 laminectomy with partial facetectomy Surgeon: Kannan Mitchell DO Estimated blood loss (mL): 25 Procedure: 1. L4-5 laminectomy with partial facetectomy 2. L5-S1 laminectomy with partial facetectomy Patient is brought to the operative suite. After undergoing anesthesia they are placed in the prone position. All areas of impingement are well padded. Patient is then prepped and draped in the normal sterile fashion. A skin incision is made over the L4/5 level. This is confirmed under c-arm guidance. A series of dilators are passed and the tubular retractor is docked on the L4 lamina. A bovie is used to clear the soft tissue off the lamina and the L 4/5 facet joint. A high speed davide is then used to perform the laminectomy and take down the medial aspect of the L 4/5 facet joint. A kerrison rongeure was then used to take down the remaining lamina and smooth the edge of the laminectomy up to the point where the ligamentum flavum attaches. Attention was then brought to the medial aspect of the facet joint. The remaining medial aspect of the superior and inferior aspect of the facet joint were taken down with the kerrison from the pedicle of L4 to L 5. The facet joint had significant hypertrophy. Attention was then brought to the Ligamentum Flavum. The ligament was taken down from the lamina of L4 to L5 and out medially to the remaining facet joint. The ligament was thick. The dura was then exposed. The dura was in good repair. The L4 nerve was then traced with a curette out the L4/5 foramen and found to be adequately decompressed. The L5 nerve was traced with a curette around the L5 pedicle. The lateral recess was opened with a kerrison helping to further decompress the L5 nerve. Wound is then irrigated copiously with saline and surgiflo is used to stop any bleeding. The tubular retractor is removed A skin incision is made over the L5/S1 level. This is confirmed under c-arm guidance. A series of dilators are passed and the tubular retractor is docked on the L5 lamina. A bovie is used to clear the soft tissue off the lamina and the L 5/S1 facet joint. A high speed davide is then used to perform the laminectomy and take down the medial aspect of the L 5/S1 facet joint. A kerrison rongeure was then used to take down the remaining lamina and smooth the edge of the laminectomy up to the point where the ligamentum flavum attaches. Attention was then brought to the medial aspect of the facet joint. The remaining medial aspect of the superior and inferior aspect of the facet joint were taken down with the kerrison from the pedicle of L5 to S1. The facet joint had significant hypertrophy. Attention was then brought to the Ligamentum Flavum. The ligament was taken down from the lamina of L5 to S1 and out medially to the remaining facet joint. The ligament was thick. The dura was then exposed. The dura was in good repair. The L5 nerve was then traced with a curette out the L5/S1 foramen and found to be adequately decompressed. The S1 nerve was traced with a curette around the S1 pedicle. The lateral recess was opened with a kerrison helping to further decompress the S1 nerve. Wound is then irrigated copiously with saline and surgiflo is used to stop any bleeding. The tubular retractor is removed and the wound is closed with vicryl and monocryl suture. Glue is then used to protect the wound. A sterile dressing is then placed. Patient was then placed in the supine position and transferred to the PACU in stable condition.
[2024-07-16] MEDS: HYDROcodone-acetaminophen 5-325 mg Tablet 2 TAB PO (12:07)
--- NOTE | 2024-07-16 12:35 | XR_ITS ---
WS: [id number] Lumbar spine, C-arm fluoroscopy views, 07/16/2024 Clinical Data: or pic, lumbar spine decompression Comparison: Lumbar spine, 02/03/2024 Findings: Dr. Mitchell performed a lumbar decompression. XR/XR lumbar spine 1V [id number] Impression: Lumbar decompression.
--- NOTE | 2024-07-16 12:43 | ANE.PACU2 ---
Inpatient post-anesthesia follow up: Airway intact: Yes Vital signs: Temperature 97 F Pulse Rate 50 Respiratory Rate 18 Blood Pressure 144/61 Pulse Oximetry 96 Oxygen Delivery Me thod Room Air Oxygen Flow Rate 10 Fraction of Inspir ed Oxygen Hydration adequate: Yes Nausea and vomiting: No Pain level: 1 Mental status: Baseline
--- NOTE | 2024-07-16 12:46 | PC.NURSE ---
pt discharged to cafeteria . daughter will call transportation when they are done eating.
== END 2024-07-16 12:43 | disposition home or self-care (01) ==
PROVIDERS: PCP Family Medicine; Visit Provider Orthopaedic Surgery
PROC: (CPT 63005; principal; 2024-07-16 09:25)
DX: M48.062 Spinal stenosis, lumbar region with neurogenic claudication (principal); I48.91 Unspecified atrial fibrillation; Z79.01 Long term (current) use of anticoagulants; E66.01 Morbid (severe) obesity due to excess calories; F17.290 Nicotine dependence, other tobacco product, uncomplicated; Z79.899 Other long term (current) drug therapy; E11.69 Type 2 diabetes mellitus with other specified complication; G47.33 Obstructive sleep apnea (adult) (pediatric); I10 Essential (primary) hypertension; Z79.4 Long term (current) use of insulin; Z68.41 Body mass index [BMI] 40.0-44.9, adult
CPT/HCPCS: 63047; 63048 ×2; 36416; 72020; 76000; 82962; 93005; J0690; J1100; J2250; J2405; J2704; J3010; J3490; J7030

== ENCOUNTER → 2024-07-29 14:29 | Outpatient (BNVA) | payer MEDICARE, MEDICAID, SELFPAY | PROVIDERS: PCP Family Medicine; Visit Provider Orthopaedic Surgery | DX: Z98.890 Other specified postprocedural states (principal) | CPT/HCPCS: 99024 ==

== ENCOUNTER → 2024-08-23 15:26 | Outpatient (BNVA) | payer MEDICARE, MEDICAID, SELFPAY | PROVIDERS: PCP Family Medicine; Visit Provider Nurse Practitioner Family | DX: I48.0 Paroxysmal atrial fibrillation (principal); R00.1 Bradycardia, unspecified; R94.31 Abnormal electrocardiogram [ECG] [EKG]; I95.9 Hypotension, unspecified; E66.9 Obesity, unspecified; Z68.41 Body mass index [BMI] 40.0-44.9, adult; Z79.01 Long term (current) use of anticoagulants | CPT/HCPCS: 93005; 99214 ==

== ENCOUNTER → 2024-08-26 13:43 | Outpatient (BNVA) | payer MEDICARE, MEDICAID, SELFPAY | PROVIDERS: PCP Family Medicine; Visit Provider Orthopaedic Surgery | DX: Z98.890 Other specified postprocedural states (principal); M54.50 Low back pain, unspecified | CPT/HCPCS: 99024 ==

== ENCOUNTER → 2024-09-22 14:07 | Outpatient (BNVA) | payer MEDICARE, MEDICAID, SELFPAY | PROVIDERS: PCP Family Medicine; Visit Provider Internal Medicine Cardiovascular Disease | DX: I48.0 Paroxysmal atrial fibrillation (principal); I10 Essential (primary) hypertension; F17.200 Nicotine dependence, unspecified, uncomplicated; E11.8 Type 2 diabetes mellitus with unspecified complications; Z79.4 Long term (current) use of insulin; G47.33 Obstructive sleep apnea (adult) (pediatric); Z95.818 Presence of other cardiac implants and grafts; R00.1 Bradycardia, unspecified; F17.290 Nicotine dependence, other tobacco product, uncomplicated; Z79.01 Long term (current) use of anticoagulants | CPT/HCPCS: 99214 ==

== ENCOUNTER → 2024-10-07 12:55 | Outpatient (BNVA) | payer MEDICARE, MEDICAID, SELFPAY | PROVIDERS: PCP Family Medicine; Visit Provider Orthopaedic Surgery | DX: Z98.890 Other specified postprocedural states (principal) | CPT/HCPCS: 99024 ==